=== PATIENT | male | born 1950 | race Caucasian/White ===

== ENCOUNTER 2019-08-17 14:30 | Emergency (ER) | payer MEDICARE ==
[~2019-08-17 14:30] MED LIST: ALPR0.5T PO; AMLO5TAB9 PO; ASPI-999 PO; ATOR80TA76 PO; CLOP75TA28 PO; DONE5TAB8 PO; FLUO60TA PO; IRBE300T18 PO; MELO15TA14 PO; MEMA5TAB PO; METO100T12 PO; METO50TA7 PO
[2019-08-17] MEDS ORDERED: ASPIRIN 81 MG CHEW (CHILDREN'S ASA) PO ONE (15:30)
--- NOTE | 2019-08-17 15:37 | ED Chest Pain ---
General Chief Complaint: Cardiac/General Problems Stated Complaint: DIZZINESS;WEAKNESS Nursing Triage Note: Pt to room #6 via ED w/c by ED staff with c/o headache, neck discomfort, et dizziness. Daughter at side reports pt has been experiencing vague ssymtpoms of "not feeling well." Pt denies CP or SOA. Nursing Sepsis Screen: No Definite Risk Source: patient Exam Limitations: no limitations History of Present Illness Date Seen by Provider: Aug 17, 2019 Time Seen by Provider: 15:08 Initial Comments Patient arrives to the ER with his daughter and spouse. He has some later term dementia but is still verbal and able to make his needs known. He was complaining around 1:00 this afternoon to his daughter that he had a neck ache and headache and left shoulder was hurting. He had similar left shoulder pain without chest pain June 2019, 3 months ago when he had a heart attack. Said he did not feel well and this sounded ominous to his daughter so she brought him to the ER for evaluation. First she gave him some Tylenol and waited and after an hour he still did not feel well. No nausea vomiting fever chills cough shortness of breath wheezing or history of lung disease. He does not smoke but is spouse smokes. He is taking all of his medications, Plavix and as prescribed. He followed by Dr. Lieberman and Dr. Trinh, cardiology. He has sleep apnea, hypertension, hyperlipidemia. They recently changed his statin because he was having some generalized backache see if that would help. He has osteoarthritis and common complaints of pain in his low back and hands bilaterally. He recently had his metoprolol In half from 150 mg. He is not a diabetic. Allergies and Home Medications Allergies Coded Allergies: No Known Drug Allergies (Unverified , 06/06/19) Home Medications Alprazolam 0.5 Mg Tablet, 0.5 MG PO Q6H PRN for ANXIETY, (Reported) Amlodipine Besylate 5 Mg Tablet, 5 MG PO DAILY Prescribed by: LAISHA GRANT on 08/17/19 174 Aspirin 81 Mg Tab.chew, 81 MG PO DAILY Prescribed by: MAXIMO CORRAL on 06/08/19 1002 Atorvastatin Calcium 80 Mg Tablet, 80 MG PO DAILY, (Reported) Clopidogrel Bisulfate 75 Mg Tablet, 75 MG PO DAILY Prescribed by: MAXIMO CORRAL on 06/08/19 1002 Donepezil HCl 5 Mg Tablet, 5 MG PO DAILY, (Reported) Fluoxetine HCl 60 Mg Tablet, 30 MG PO DAILY, (Reported) Irbesartan 300 Mg Tablet, 300 MG PO DAILY, (Reported) Memantine HCl 5 Mg Tablet, 5 MG PO DAILY, (Reported) Metoprolol Succinate 50 Mg Tab.er.24h, 50 MG PO DAILY Prescribed by: MAXIMO CORRAL on 06/08/19 1002 Metoprolol Succinate 25 Mg Tab.er.24h, 25 MG PO DAILY Prescribed by: LAISHA GRANT on 08/17/19 1742 Patient Home Medication List Home Medication List Reviewed: Yes Review of Systems Review of Systems Constitutional: No chills, No diaphoresis EENTM: No Blurred Vision, No Eye Tearing Respiratory: Denies Cough, Denies Shortness of Air Cardiovascular: Denies Chest Pain, Denies Edema, Denies Lightheadedness Gastrointestinal: Denies Constipated, Denies Diarrhea Genitourinary: Denies Discharge, Denies Drainage Musculoskeletal: back pain; No joint pain, No joint swelling; neck pain Skin: No change in color, No dryness Psychiatric/Neurological: Headache Past Axsviqy-Ggvewq-Uuppwd Hx Patient Social History 2nd Hand Smoke Exposure: Yes ( SMOKES) Recent Foreign Travel: No Contact w/Someone Who Travel: No Recent Infectious Disease Expo: No Recent Hopitalizations: No Seasonal Allergies Seasonal Allergies: No Past Medical History Surgeries: No Respiratory: No Cardiac: Yes (SVT) High Cholesterol, Irregular Heartbeat Neurological: Yes Dementia Genitourinary: No Gastrointestinal: No Musculoskeletal: Yes (CHRONIC GENERALIZED PAIN) Endocrine: No (OBESITY) HEENT: No Cancer: No Psychosocial: Yes Anxiety, Depression Integumentary: No Blood Disorders: No Physical Exam Vital Signs Vital Signs - First Documented 08/17/19 08/17/19 14:40 18:38 Temp 37.1 Pulse 50 Resp 18 B/P (MAP) 170/102 (124) Pulse Ox 96 O2 Delivery Room Air Capillary Refill : Less Than 3 Seconds Height, Weight, BMI Height: '" Weight: lbs. oz. kg; 45.97 BMI Method: General Appearance: No Apparent Distress, Obese HEENT: PERRL/EOMI, Pharynx Normal, Moist Mucous Membranes Neck: Full Range of Motion, Normal Inspection Respiratory: Chest Non Tender, Lungs Clear, Normal Breath Sounds, No Accessory Muscle Use Cardiovascular: Regular Rate, Rhythm, No Edema, No JVD, No Murmur, Normal Peripheral Pulses Gastrointestinal: Normal Bowel Sounds, No Organomegaly, Non Tender, Soft Extremity: Normal Capillary Refill, Normal Inspection, No Pedal Edema Neurologic/Psychiatric: Alert, Oriented x3, No Motor/Sensory Deficits Skin: Normal Color, Warm/Dry Progress/Results/Core Measures Results/Orders Lab Results Laboratory Tests Test 08/17/19 14:45 08/17/19 17:30 Range/Units White Blood Count 10.1 4.3-11.0 10^3/uL Red Blood Count 4.76 4.35-5.85 10^6/uL Hemoglobin 15.1 13.3-17.7 G/DL Hematocrit 44 40-54 % Mean Corpuscular Volume 92 80-99 FL Mean Corpuscular Hemoglobin 32 25-34 PG Mean Corpuscular Hemoglobin Concent 35 32-36 G/DL Red Cell Distribution Width 14.1 10.0-14.5 % Platelet Count 353 130-400 10^3/uL Mean Platelet Volume 10.5 H 7.4-10.4 FL Neutrophils (%) (Auto) 52 42-75 % Lymphocytes (%) (Auto) 36 12-44 % Monocytes (%) (Auto) 10 0-12 % Eosinophils (%) (Auto) 2 0-10 % Basophils (%) (Auto) 0 0-10 % Neutrophils # (Auto) 5.3 1.8-7.8 X 10^3 Lymphocytes # (Auto) 3.7 1.0-4.0 X 10^3 Monocytes # (Auto) 1.0 0.0-1.0 X 10^3 Eosinophils # (Auto) 0.2 0.0-0.3 10^3/uL Basophils # (Auto) 0.0 0.0-0.1 10^3/uL Prothrombin Time 12.0 L 12.2-14.7 SEC INR Comment 0.9 0.8-1.4 Activated Partial Thromboplast Time 33 24-35 SEC Sodium Level 135 135-145 MMOL/L Potassium Level 4.6 3.6-5.0 MMOL/L Chloride Level 101 98-107 MMOL/L Carbon Dioxide Level 25 21-32 MMOL/L Anion Gap 9 5-14 MMOL/L Blood Urea Nitrogen 14 7-18 MG/DL Creatinine 1.05 0.60-1.30 MG/DL Estimat Glomerular Filtration Rate > 60 BUN/Creatinine Ratio 13 Glucose Level 122 H 70-105 MG/DL Calcium Level 9.4 8.5-10.1 MG/DL Corrected Calcium 9.4 8.5-10.1 MG/DL Magnesium Level 2.1 1.6-2.4 MG/DL Total Bilirubin 0.4 0.1-1.0 MG/DL Aspartate Amino Transf (AST/SGOT) 16 5-34 U/L Alanine Aminotransferase (ALT/SGPT) 17 0-55 U/L Alkaline Phosphatase 80 40-136 U/L Myoglobin 55.9 10.0-92.0 NG/ML Troponin I < 0.028 < 0.028 <0.028 NG/ML B-Type Natriuretic Peptide 34.1 <100.0 PG/ML Total Protein 7.3 6.4-8.2 GM/DL Albumin 4.0 3.2-4.5 GM/DL My Orders Orders - LAISHA GRANT Cbc With Automated Diff (08/17/19:) Magnesium (08/17/19 15:27) Chest 1 View, Ap/Pa Only (08/17/19 15:27) Comprehensive Metabolic Panel (08/17/19:) Myoglobin Serum (08/17/19:) Protime With Inr (08/17/19 15:27) Partial Thromboplastin Time (08/17/19 15:27) O2 (08/17/19 15:27) Monitor-Rhythm Ecg Trace Only (08/17/19 15:27) Ed Iv/Invasive Line Start (08/17/19 15:27) BNP (08/17/19 15:27) Troponin I (08/17/19 15:27) Aspirin Chewable Tablet (Baby Aspirin Ch (08/17/19 15:30) Ekg Tracing (08/17/19 15:27) Troponin I (08/17/19 17:27) Ekg Tracing (08/17/19 17:27) Medications Given in ED Vital Signs/I&O 08/17/19 08/17/19 14:40 18:38 Temp 37.1 Pulse 50 49 Resp 18 18 B/P (MAP) 170/102 (124) 160/96 (124) Pulse Ox 96 97 O2 Delivery Room Air Room Air Blood Pressure Mean: 124 Progress Progress Note : Time: 15:47 Progress Note Atypical angina? Prodromal viral syndrome? Typical headache? At this time is not endorsing any headache or neck ache so possibly the Tylenol has helped. We'll get a troponin and EKG given some aspirin and get a chest x-ray. Initial ECG Impression Date: Aug 17, 2019 Initial ECG Impression Time: 14:40 Initial ECG Rate: 53 Initial ECG Rhythm: Normal Sinus Initial ECG Intervals: Normal Initial ECG Impression: Normal Initial ECG Comparisson: Changed, Unchanged Comment Normal sinus rhythm without ST elevation or depression. EKG : EKG Time: 17:33 Rate: 46 Rhythm: S.Michael Intervals: Normal ECG Comparisson: Changed, Unchanged ECG Impression: Normal Comment Sinus bradycardia no ST elevation or depression. Diagnostic Imaging Diagonstic Imaging: Xray Plain Films/CT/US/NM/MRI: chest (1v) Comments Favor bibasilar atelectasis. [facility], [place] NAME: EDITH REYNOSO [facility] REC#: [id number] PT STATUS: REG ER : 1950 PHYSICIAN: LAISHA GRANT MD ADMIT DATE: 08/17/19/ER Signed Date of Exam:08/17/19 CHEST 1 VIEW, AP/PA ONLY INDICATION: Headache, neck discomfort, and dizziness. Comparison made with prior examination from 06/06/2019. FINDINGS: There is cardiomegaly. There is some bibasilar subsegmental atelectasis and/or pneumonitis. There is no pneumothorax. Mediastinum is unremarkable. IMPRESSION: Cardiomegaly and some patchy bibasilar subsegmental atelectasis and/or pneumonitis. Dictated by: Dictated on workstation # [id number] Dict: 08/17/19 1604 Trans: 08/17/19 1610 [id number] Interpreted by: DONNA SANDRA MD Electronically signed by: DONNA SANDRA MD 08/17/19 1610 Reviewed: Reviewed by Me Consults : Consulting Physician: NEY TRINH MD FACP FAC CCDS Consults Notes Discussed the case with Dr. Trinh at 1730 and he would like a rule out troponin 4 hours after the start of the pain which was at about 1300. If this is okay then he would be okay letting the patient go home and halving the dose of metoprolol to 25 mg. He would suggest treating the blood pressure with amlodipine 5 mg daily. Follow-up Tomorrow in the clinic. Departure Impression Primary Impression: Hypertension Qualified Codes: I10 - Essential (primary) hypertension Additional Impressions: Beta-ernesto intolerance Sinus bradycardia seen on curing room worker Disposition: HOME, SELF-CARE Condition: Stable Departure-Patient Inst. Decision time for Depature: 18:27 Referrals: NEY TRINH MD FACP FAC CCDS NO,LOCAL PHYSICIAN (PCP) Primary Care Physician Patient Instructions: High Blood Pressure (DC) Add. Discharge Instructions: Stop taking the metoprolol 50 mg daily. Start taking metoprolol 25 mg daily. Start taking amlodipine 5 mg daily. Follow-up with primary care Dr. Trinh, cardiology tomorrow in the clinic by calling for an appointment first thing in the morning. Tylenol, muscle rubs, heat as necessary for neck ache and headache. Please return to the ER if you begin to experience chest pain, shortness of breath or other worrisome symptoms. All discharge instructions reviewed with patient and/or family. Voiced understanding. Scripts Amlodipine Besylate (Amlodipine Besylate) 5 Mg Tablet 5 MG PO DAILY for 30 Days, #30 TAB 0 Refills Prov: LAISHA GRANT 08/17/19 Metoprolol Succinate (Metoprolol Succinate) 25 Mg Tab.er.24h 25 MG PO DAILY for 30 Days, #30 TAB 0 Refills Prov: LAISHA GRANT 08/17/19 LAISHA GRANT Aug 17, 2019 15:37
[2019-08-17 15:42] LABS: BASOPHILS % (AUTO) 0 % (0-10); EOSINOPHILS # (AUTO) 0.2 10^3/uL (0.0-0.3); EOSINOPHILS % (AUTO) 2 % (0-10); HEMATOCRIT 44 % (40-54); HEMOGLOBIN 15.1 G/DL (13.3-17.7); LYMPHOCYTES # (AUTO) 3.7 X 10^3 (1.0-4.0); LYMPHOCYTES % (AUTO) 36 % (12-44); MEAN CORPUSCULAR HEMOGLOBIN 32 PG (25-34); MEAN CORPUSCULAR HGB CONC 35 G/DL (32-36); MEAN CORPUSCULAR VOLUME 92 FL (80-99); MEAN PLATELET VOLUME 10.5 FL (7.4-10.4); MONOCYTES % (AUTO) 10 % (0-12); NEUTROPHILS # (AUTO) 5.3 X 10^3 (1.8-7.8); NEUTROPHILS % (AUTO) 52 % (42-75); PLATELET COUNT 353 10^3/uL (130-400); RED CELL DISTRIBUTION WIDTH 14.1 % (10.0-14.5); WHITE BLOOD COUNT 10.1 10^3/uL (4.3-11.0)
[2019-08-17 16:00] LABS: ALANINE AMINOTRANSFERASE 17 U/L (0-55); ALKALINE PHOSPHATASE 80 U/L (40-136); BILIRUBIN,TOTAL 0.4 MG/DL (0.1-1.0); BUN/CREATININE RATIO 13; CALCIUM 9.4 MG/DL (8.5-10.1); CARBON DIOXIDE 25 MMOL/L (21-32); CHLORIDE 101 MMOL/L (98-107); CREATININE SERUM 1.05 MG/DL (0.60-1.30); GFR ESTIMATED > 60; GLUCOSE 122 MG/DL (70-105); INR 0.9 (0.8-1.4); MAGNESIUM 2.1 MG/DL (1.6-2.4); POTASSIUM 4.6 MMOL/L (3.6-5.0); SODIUM 135 MMOL/L (135-145); TOTAL PROTEIN 7.3 GM/DL (6.4-8.2)
--- NOTE | 2019-08-17 16:06 | Diagnostic Imaging Report ---
INDICATION: Headache, neck discomfort, and dizziness. Comparison made with prior examination from 06/06/2019. FINDINGS: There is cardiomegaly. There is some bibasilar subsegmental atelectasis and/or pneumonitis. There is no pneumothorax. Mediastinum is unremarkable. IMPRESSION: Cardiomegaly and some patchy bibasilar subsegmental atelectasis and/or pneumonitis. Dictated by: Dictated on workstation # [id number]
[2019-08-17] MEDS ORDERED: MTP25TSR PO (17:42)
[2019-08-17] MEDS ORDERED: AMLO5TAB9 PO (17:42)
[2019-08-17 18:38] VITALS: BP 160/96
--- OUTSIDE RECORDS SUMMARY | 2019-08-27 06:26 | XMS REPORT | Continuity of Care Document ---
Author Organization Unknown Address Unknown Phone Unavailable Allergies Active Description Code Type Severity Reaction Onset Reported/Identified Relationship to Patient Clinical Status Yes No Known Drug Allergies [id number] Drug Allergy Unknown N/A 06/06/2019 Medications There is no data. Problems Date Dx Coded Attending Type Code Diagnosis Diagnosed By 06/08/2019 STERLING HIGGINBOTHAM FACC, NEY FACP CCDS Ot E66.01 MORBID (SEVERE) OBESITY DUE TO EXCESS CA 06/08/2019 STERLING HIGGINBOTHAM FACC, NEY FACP CCDS Ot E78.00 PURE HYPERCHOLESTEROLEMIA, UNSPECIFIED 06/08/2019 STERLING HIGGINBOTHAM FACC, ALI FACP CCDS Ot F03.90 UNSPECIFIED DEMENTIA WITHOUT BEHAVIORAL 06/08/2019 STERLING HIGGINBOTHAM FACC, NEY FACP CCDS Ot F32.9 MAJOR DEPRESSIVE DISORDER, SINGLE EPISOD 06/08/2019 STERLING HIGGINBOTHAM FACC, NEY FACP CCDS Ot G89.29 OTHER CHRONIC PAIN 06/08/2019 STERLING HIGGINBOTHAM FACC, NEY FACP CCDS Ot I10 ESSENTIAL (PRIMARY) HYPERTENSION 06/08/2019 STERLING HIGGINBOTHAM FACC, ALI FACP CCDS Ot I21.4 NON-ST ELEVATION (NSTEMI) MYOCARDIAL INF 06/08/2019 STERLING HIGGINBOTHAM FACC, NEY FACP CCDS Ot I25.10 ATHSCL HEART DISEASE OF [place] CORONARY 06/08/2019 STERLING HIGGINBOTHAM FACC, NEY FACP CCDS Ot I47.1 SUPRAVENTRICULAR TACHYCARDIA 06/08/2019 NEY KATZ MD, FACC FACP CCDS Ot R52 PAIN, UNSPECIFIED 06/08/2019 STERLING HIGGINBOTHAM FACC, NEY FACP CCDS Ot R73.01 IMPAIRED FASTING GLUCOSE 06/08/2019 STERLING HIGGINBOTHAM FACC ALI FACP CCDS Ot Z68.42 BODY MASS INDEX (BMI) 45.0-49.9, ADULT 06/08/2019 NEY KATZ MD, FACC FACP CCDS Ot E66.01 MORBID (SEVERE) OBESITY DUE TO EXCESS CA 06/08/2019 STERLING MD FACC, ALI FACP CCDS Ot E78.00 PURE HYPERCHOLESTEROLEMIA, UNSPECIFIED 06/08/2019 STERLING SHAIKHC, ALI FACP CCDS Ot F03.90 UNSPECIFIED DEMENTIA WITHOUT BEHAVIORAL 06/08/2019 STERLING HIGGINBOTHAM FACC, ALI FACP CCDS Ot F32.9 MAJOR DEPRESSIVE DISORDER, SINGLE EPISOD 06/08/2019 STERLING SHAIKHC, ALI FACP CCDS Ot G89.29 OTHER CHRONIC PAIN 06/08/2019 STERLING SHAIKHC, ALI FACP CCDS Ot I10 ESSENTIAL (PRIMARY) HYPERTENSION 06/08/2019 STERLING SHAIKHC, ALI FACP CCDS Ot I21.4 NON-ST ELEVATION (NSTEMI) MYOCARDIAL INF 06/08/2019 STERLING HIGGINBOTHAM FACC, ALI FACP CCDS Ot I25.10 ATHSCL HEART DISEASE OF [place] CORONARY 06/08/2019 STERLING HIGGINBOTHAM FACC, ALI FACP CCDS Ot I47.1 SUPRAVENTRICULAR TACHYCARDIA 06/08/2019 STERLING HIGGINBOTHAM FACC, ALI FACP CCDS Ot R52 PAIN, UNSPECIFIED 06/08/2019 STERLING HIGGINBOTHAM FACC, ALI FACP CCDS Ot R73.01 IMPAIRED FASTING GLUCOSE 06/08/2019 STERLING HIGGINBOTHAM FACC, ALI FACP CCDS Ot Z68.42 BODY MASS INDEX (BMI) 45.0-49.9, ADULT 06/08/2019 STERLING HIGGINBOTHAM FACC, ALI FACP CCDS Ot E66.01 MORBID (SEVERE) OBESITY DUE TO EXCESS CA 06/08/2019 STERLING SHAIKH, ALI FACP CCDS Ot E78.00 PURE HYPERCHOLESTEROLEMIA, UNSPECIFIED 06/08/2019 STERLING SHAIKH, ALI FACP CCDS Ot F03.90 UNSPECIFIED DEMENTIA WITHOUT BEHAVIORAL 06/08/2019 STERLING SHAIKH, ALI FACP CCDS Ot F32.9 MAJOR DEPRESSIVE DISORDER, SINGLE EPISOD 06/08/2019 STERLING HIGGINBOTHAM FACC, ALI FACP CCDS Ot G89.29 OTHER CHRONIC PAIN 06/08/2019 STERLING HIGGINBOTHAM FACC, ALI FACP CCDS Ot I10 ESSENTIAL (PRIMARY) HYPERTENSION 06/08/2019 STERLING HIGGINBOTHAM FACC, ALI FACP CCDS Ot I21.4 NON-ST ELEVATION (NSTEMI) MYOCARDIAL INF 06/08/2019 STERLING HIGGINBOTHAM FACC, ALI FACP CCDS Ot I25.10 ATHSCL HEART DISEASE OF [place] CORONARY 06/08/2019 STERLING HIGGINBOTHAM FACC, NEY FACP CCDS Ot I47.1 SUPRAVENTRICULAR TACHYCARDIA 06/08/2019 STERLING HIGGINBOTHAM FACC, NEY FACP CCDS Ot R52 PAIN, UNSPECIFIED 06/08/2019 STERLING HIGGINBOTHAM FACC, ALI FACP CCDS Ot R73.01 IMPAIRED FASTING GLUCOSE 06/08/2019 STERLING HIGGINBOTHAM FACC, ALI FACP CCDS Ot Z68.42 BODY MASS INDEX (BMI) 45.0-49.9, ADULT 06/08/2019 STERLING HIGGINBOTHAM FACC, ALI FACP CCDS Ot E66.01 MORBID (SEVERE) OBESITY DUE TO EXCESS CA 06/08/2019 STERLING HIGGINBOTHAM FACC, NEY FACP CCDS Ot E78.00 PURE HYPERCHOLESTEROLEMIA, UNSPECIFIED 06/08/2019 STERLING HIGGINBOTHAM FACC, NEY FACP CCDS Ot F03.90 UNSPECIFIED DEMENTIA WITHOUT BEHAVIORAL 06/08/2019 STERLING HGIGINBOTHAM FACC, ALI FACP CCDS Ot F32.9 MAJOR DEPRESSIVE DISORDER, SINGLE EPISOD 06/08/2019 STERLING HIGGINBOTHAM FACC, NEY FACP CCDS Ot G89.29 OTHER CHRONIC PAIN 06/08/2019 STERLING HIGGINBOTHAM FACC, NEY FACP CCDS Ot I10 ESSENTIAL (PRIMARY) HYPERTENSION 06/08/2019 STERLING HIGGINBOTHAM FACC, NEY FACP CCDS Ot I21.4 NON-ST ELEVATION (NSTEMI) MYOCARDIAL INF 06/08/2019 STERLING HIGGINBOTHAM FACC, NEY FACP CCDS Ot I25.10 ATHSCL HEART DISEASE OF [place] CORONARY 06/08/2019 NEY KATZ MD, FACC FACP CCDS Ot I25.110 ATHSCL HEART DISEASE OF [place] COR ART W 06/08/2019 STERLING HIGGINBOTHAM FACC, NEY FACP CCDS Ot 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 06/08/2019 STERLING HIGGINBOTHAM FACC, NEY FACP CCDS Ot I47.1 SUPRAVENTRICULAR TACHYCARDIA 06/08/2019 STERLING HIGGINBOTHAM FACC, NEY FACP CCDS Ot I95.81 POSTPROCEDURAL HYPOTENSION 06/08/2019 NEY KATZ MD, FACC FACP CCDS Ot 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 06/08/2019 NEY KATZ MD, FACC FACP CCDS Ot K66.1 HEMOPERITONEUM 06/08/2019 STERLING HIGGINBOTHAM FACC, NEY FACP CCDS Ot R52 PAIN, UNSPECIFIED 06/08/2019 STERLING SHAIKH, ALI FACP CCDS Ot R73.01 IMPAIRED FASTING GLUCOSE 06/08/2019 STERLING SHAIKH, ALI FACP CCDS Ot Z68.42 BODY MASS INDEX (BMI) 45.0-49.9, ADULT 06/10/2019 STERLING HIGGINBOTHAM FACC, ALI FACP CCDS Ot E66.01 MORBID (SEVERE) OBESITY DUE TO EXCESS CA 06/10/2019 STERLING SHAIKH, ALI FACP CCDS Ot E78.00 PURE HYPERCHOLESTEROLEMIA, UNSPECIFIED 06/10/2019 STERLING SHAIKH, ALI FACP CCDS Ot F03.90 UNSPECIFIED DEMENTIA WITHOUT BEHAVIORAL 06/10/2019 STERLING SHAIKH, ALI FACP CCDS Ot F32.9 MAJOR DEPRESSIVE DISORDER, SINGLE EPISOD 06/10/2019 STERLING HIGGINBOTHAM FACC, ALI FACP CCDS Ot G89.29 OTHER CHRONIC PAIN 06/10/2019 STERLING SHAIKH, NEY FACP CCDS Ot I10 ESSENTIAL (PRIMARY) HYPERTENSION 06/10/2019 STERLING SHAIKH, ALI FACP CCDS Ot I21.4 NON-ST ELEVATION (NSTEMI) MYOCARDIAL INF 06/10/2019 STERLING SHAIKH, ALI FACP CCDS Ot I25.10 ATHSCL HEART DISEASE OF [place] CORONARY 06/10/2019 STERLING SHAIKH, ALI FACP CCDS Ot I47.1 SUPRAVENTRICULAR TACHYCARDIA 06/10/2019 STERLING HIGGINBOTHAM FACC, NYE FACP CCDS Ot R52 PAIN, UNSPECIFIED 06/10/2019 STERLING SHAIKH, ALI FACP CCDS Ot R73.01 IMPAIRED FASTING GLUCOSE 06/10/2019 STERLING SHAIKH, ALI FACP CCDS Ot Z68.42 BODY MASS INDEX (BMI) 45.0-49.9, ADULT Procedures Code Description Performed By Per nina On [id number] DI LATION OF 1 COR ART WITH DRUG-ELUT INT 06/06/2019 [id number] ME ASURE OF CARDIAC SAMPL PRESSURE, L H 06/06/2019 [id number] FL UOROSCOPY OF MULT COR ART USING L OSM 06/06/2019 [id number] FL UOROSCOPY OF LEFT HEART USING LOW OSMO 06/06/2019 Results Test Result Range Complete blood count (CBC) with automate d white blood cell (WBC) differential - 06/06/19 07:25 Blood leukocytes automated count (number/volume) 11.3 10*3/uL 4.3-11.0 Blood erythrocytes automated count (number/volume) 5.10 10*6/uL 4.35-5.85 Venous blood hemoglobin measurement (mass/volume) 16.2 g/dL 13.3-17.7 Blood hematocrit (volume fraction) 47 % 40-54 Automated erythrocyte mean corpuscular volume 93 [ foz_us] 80-99 Automated erythrocyte mean corpuscular h emoglobin (mass per erythrocyte) 32 pg 25-34 Automated erythrocyte mean corpuscular h emoglobin concentration measurement (mass/volume) 34 g/dL 32-36 Automated erythrocyte distribution width ratio 14. 1 % 10.0- 14.5 Automated blood platelet count (count/volume) 361 10*3/uL 130-400 Automated blood platelet mean volume measurement 10.4 [foz_us] 7.4-10.4 Automated blood neutrophils/100 leukocytes 48 % 42-75 Automated blood lymphocytes/100 leukocytes 39 % 12-44 Blood monocytes/100 leukocytes 10 % 0-12 Automated blood eosinophils/100 leukocytes 2 % 0-10 Automated blood basophils/100 leukocytes 0 % 0-10 Blood neutrophils automated count (number/volume) 5.4 10*3 1.8-7.8 Blood lymphocytes automated count (number/volume) 4.5 10*3 1.0-4.0 Blood monocytes automated count (number/volume) 1. 2 10*3 0.0-1.0 Automated eosinophil count 0.2 10*3/uL 0 .0-0.3 Automated blood basophil count (count/volume) 0.0 10*3/uL 0.0-0.1 PT panel in platelet poor plasma by coag ulation assay - 06/06/19 07:25 Prothrombin time (PT) in platelet poor plasma by coagu lation assay 12.5 s 12.2-14.7 INR in platelet poor plasma or blood by coagulation as say 0.9 0.8-1.4 Activated partial thromboplastin time (a PTT) in platelet poor plasma bycoagulation assay - 06/06/19 07:25 Activated partial thromboplastin time (a PTT) in platelet poor plasma bycoagulation assay 34 s 24-35 Comprehensive metabolic panel - 06/06/19 07:25 Serum or plasma sodium measurement (moles/volume) 138 mmol/L 135-145 Serum or plasma potassium measurement (moles/volume) 4.2 mmol/L 3.6-5.0 Serum or plasma chloride measurement (moles/volume) 100 mmol/L 98-107 Carbon dioxide 24 mmol/L 21-32 Serum or plasma anion gap determination (moles/volume) 14 mmol/L 5-14 Serum or plasma urea nitrogen measurement (mass/volume ) 14 mg/dL 7-18 Serum or plasma creatinine measurement (mass/volume) 1.24 mg/dL 0.60-1.30 Serum or plasma urea nitrogen/creatinine mass ratio 11 NRG Serum or plasma creatinine measurement w ith calculation of estimated glomerular filtration rate 58 NRG Serum or plasma glucose measurement (mass/volume) 110 mg/dL 70-105 Serum or plasma calcium measurement (mass/volume) 9.1 mg/dL 8.5-10.1 Serum or plasma total bilirubin measurement (mass/volu me) 0.5 mg/dL 0.1-1.0 Serum or plasma alkaline phosphatase jaret surement (enzymatic activity/volume) 93 U/L 40-136 Serum or plasma aspartate aminotransfera se measurement (enzymatic activity/volume) 20 U/L 5-34 Serum or plasma alanine aminotransferase measurement (enzymatic activity/volume) 23 U/L 0-55 Serum or plasma protein measurement (mass/volume) 7.8 g/dL 6.4-8.2 Serum or plasma albumin measurement (mass/volume) 4.3 g/dL 3.2-4.5 CALCIUM CORRECTED 8.9 mg/dL 8.5-10.1 Magnesium - 06/06/19 07:25 Magnesium 1.9 mg/dL 1.6-2.4 Serum or plasma creatine kinase measurem ent (enzymatic activity/volume) - 06/06/19 07:25 Serum or plasma creatine kinase measurem ent (enzymatic activity/volume) 126 U/L 30-200 Serum or plasma creatine kinase MB measu rement (enzymatic activity/volume) - 06/06/19 07:25 Serum or plasma creatine kinase MB measu rement (enzymatic activity/volume) 2.3 ng/mL <6.6 Myoglobin, serum - 06/06/19 07:25 Myoglobin, serum 61.4 ng/mL 10.0-92.0 Serum or plasma amylase measurement (enz ymatic activity/volume) - 06/06/19 07:25 Serum or plasma amylase measurement (enzymatic activit y/volume) 45 U/L 25-125 Lipase - 06/06/19 07:25 Lipase 20 U/L 8-78 Serum or plasma troponin i.cardiac measu rement (mass/volume) - 06/06/19 07:25 Serum or plasma troponin i.cardiac measurement (mass/v olume) 0.283 ng/mL <0.028 Serum or plasma lithium measurement (mol es/volume) - 06/06/19 07:25 BNP PT 34.9 pg/mL <100.0 Complete blood count (CBC) with automate d white blood cell (WBC) differential - 06/06/19 10:45 Blood leukocytes automated count (number/volume) 17.7 10*3/uL 4.3-11.0 Blood erythrocytes automated count (number/volume) 3.95 10*6/uL 4.35-5.85 Venous blood hemoglobin measurement (mass/volume) 12.5 g/dL 13.3-17.7 Blood hematocrit (volume fraction) 38 % 40-54 Automated erythrocyte mean corpuscular volume 95 [ foz_us] 80-99 Automated erythrocyte mean corpuscular h emoglobin (mass per erythrocyte) 32 pg 25-34 Automated erythrocyte mean corpuscular h emoglobin concentration measurement (mass/volume) 33 g/dL 32-36 Automated erythrocyte distribution width ratio 13. 9 % 10.0- 14.5 Automated blood platelet count (count/volume) 353 10*3/uL 130-400 Automated blood platelet mean volume measurement 10.3 [foz_us] 7.4-10.4 Automated blood neutrophils/100 leukocytes 63 % 42-75 Automated blood lymphocytes/100 leukocytes 27 % 12-44 Blood monocytes/100 leukocytes 9 % 0-12 Automated blood eosinophils/100 leukocytes 1 % 0-10 Automated blood basophils/100 leukocytes 0 % 0-10 Blood neutrophils automated count (number/volume) 11.2 10*3 1.8-7.8 Blood lymphocytes automated count (number/volume) 4.7 10*3 1.0-4.0 Blood monocytes automated count (number/volume) 1. 6 10*3 0.0-1.0 Automated eosinophil count 0.1 10*3/uL 0 .0-0.3 Automated blood basophil count (count/volume) 0.0 10*3/uL 0.0-0.1 Blood type T Indirect antibody screen pa leatha - 06/06/19 10:45 WRISTBAND NUMBER [id number] NRG ABO+Rh group AP NRG Blood group antibody screen NEGATIVE NR G Manual absolute plasma cell count - 07/25 10:45 Blood monocytes/100 leukocytes 8 % NRG Manual blood segmented neutrophils/100 leukocytes 69 % NRG Manual blood lymphocytes/100 leukocytes 17 % NRG Manual eosinophils/100 leukocytes in nose 1 % NRG Blood lymphocytes variant/100 leukocytes 5 % NRG Blood erythrocyte morphology finding identification NORMAL NRG Complete blood count (CBC) with automate d white blood cell (WBC) differential - 06/06/19 11:15 Blood leukocytes automated count (number/volume) 13.2 10*3/uL 4.3-11.0 Blood erythrocytes automated count (number/volume) 4.05 10*6/uL 4.35-5.85 Venous blood hemoglobin measurement (mass/volume) 12.9 g/dL 13.3-17.7 Blood hematocrit (volume fraction) 39 % 40-54 Automated erythrocyte mean corpuscular volume 95 [ foz_us] 80-99 Automated erythrocyte mean corpuscular h emoglobin (mass per erythrocyte) 32 pg 25-34 Automated erythrocyte mean corpuscular h emoglobin concentration measurement (mass/volume) 34 g/dL 32-36 Automated erythrocyte distribution width ratio 13. 8 % 10.0- 14.5 Automated blood platelet count (count/volume) 290 10*3/uL 130-400 Automated blood platelet mean volume measurement 10.3 [foz_us] 7.4-10.4 Automated blood neutrophils/100 leukocytes 68 % 42-75 Automated blood lymphocytes/100 leukocytes 23 % 12-44 Blood monocytes/100 leukocytes 9 % 0-12 Automated blood eosinophils/100 leukocytes 1 % 0-10 Automated blood basophils/100 leukocytes 0 % 0-10 Blood neutrophils automated count (number/volume) 8.9 10*3 1.8-7.8 Blood lymphocytes automated count (number/volume) 3.0 10*3 1.0-4.0 Blood monocytes automated count (number/volume) 1. 1 10*3 0.0-1.0 Automated eosinophil count 0.1 10*3/uL 0 .0-0.3 Automated blood basophil count (count/volume) 0.0 10*3/uL 0.0-0.1 Comprehensive metabolic panel - 06/06/19 11:15 Serum or plasma sodium measurement (moles/volume) 137 mmol/L 135-145 Serum or plasma potassium measurement (moles/volume) 4.4 mmol/L 3.6-5.0 Serum or plasma chloride measurement (moles/volume) 106 mmol/L 98-107 Carbon dioxide 21 mmol/L 21-32 Serum or plasma anion gap determination (moles/volume) 10 mmol/L 5-14 Serum or plasma urea nitrogen measurement (mass/volume ) 13 mg/dL 7-18 Serum or plasma creatinine measurement (mass/volume) 1.13 mg/dL 0.60-1.30 Serum or plasma urea nitrogen/creatinine mass ratio 12 NRG Serum or plasma creatinine measurement w ith calculation of estimated glomerular filtration rate > NRG Serum or plasma glucose measurement (mass/volume) 142 mg/dL 70-105 Serum or plasma calcium measurement (mass/volume) 7.5 mg/dL 8.5-10.1 Serum or plasma total bilirubin measurement (mass/volu me) 0.4 mg/dL 0.1-1.0 Serum or plasma alkaline phosphatase jaret surement (enzymatic activity/volume) 68 U/L 40-136 Serum or plasma aspartate aminotransfera se measurement (enzymatic activity/volume) 25 U/L 5-34 Serum or plasma alanine aminotransferase measurement (enzymatic activity/volume) 19 U/L 0-55 Serum or plasma protein measurement (mass/volume) 5.6 g/dL 6.4-8.2 Serum or plasma albumin measurement (mass/volume) 3.3 g/dL 3.2-4.5 CALCIUM CORRECTED 8.1 mg/dL 8.5-10.1 Automated blood complete blood count (he mogram) panel - 06/07/19 03:22 Blood leukocytes automated count (number/volume) 8.8 10*3/uL 4.3-11.0 Blood erythrocytes automated count (number/volume) 3.99 10*6/uL 4.35-5.85 Venous blood hemoglobin measurement (mass/volume) 12.5 g/dL 13.3-17.7 Blood hematocrit (volume fraction) 38 % 40-54 Automated erythrocyte mean corpuscular volume 95 [ foz_us] 80-99 Automated erythrocyte mean corpuscular h emoglobin (mass per erythrocyte) 31 pg 25-34 Automated erythrocyte mean corpuscular h emoglobin concentration measurement (mass/volume) 33 g/dL 32-36 Automated erythrocyte distribution width ratio 14. 2 % 10.0- 14.5 Automated blood platelet count (count/volume) 286 10*3/uL 130-400 Automated blood platelet mean volume measurement 10.3 [foz_us] 7.4-10.4 Comprehensive metabolic panel - 06/07/19 03:22 Serum or plasma sodium measurement (moles/volume) 136 mmol/L 135-145 Serum or plasma potassium measurement (moles/volume) 4.2 mmol/L 3.6-5.0 Serum or plasma chloride measurement (moles/volume) 104 mmol/L 98-107 Carbon dioxide 23 mmol/L 21-32 Serum or plasma anion gap determination (moles/volume) 9 mmol/L 5-14 Serum or plasma urea nitrogen measurement (mass/volume ) 10 mg/dL 7-18 Serum or plasma creatinine measurement (mass/volume) 1.05 mg/dL 0.60-1.30 Serum or plasma urea nitrogen/creatinine mass ratio 10 NRG Serum or plasma creatinine measurement w ith calculation of estimated glomerular filtration rate > NRG Serum or plasma glucose measurement (mass/volume) 116 mg/dL 70-105 Serum or plasma calcium measurement (mass/volume) 8.1 mg/dL 8.5-10.1 Serum or plasma total bilirubin measurement (mass/volu me) 0.7 mg/dL 0.1-1.0 Serum or plasma alkaline phosphatase jaret surement (enzymatic activity/volume) 80 U/L 40-136 Serum or plasma aspartate aminotransfera se measurement (enzymatic activity/volume) 48 U/L 5-34 Serum or plasma alanine aminotransferase measurement (enzymatic activity/volume) 25 U/L 0-55 Serum or plasma protein measurement (mass/volume) 6.3 g/dL 6.4-8.2 Serum or plasma albumin measurement (mass/volume) 3.6 g/dL 3.2-4.5 CALCIUM CORRECTED 8.4 mg/dL 8.5-10.1 Magnesium - 06/07/19 03:22 Magnesium 1.7 mg/dL 1.6-2.4 Lipid 1996 panel - 06/07/19 03:22 Serum or plasma triglyceride measurement (mass/volume) 130 mg/dL <150 Serum or plasma cholesterol measurement (mass/volume) 156 mg/dL < 200 Serum or plasma cholesterol in HDL measurement (mass/v olume) 30 mg/dL 40-60 Cholesterol in LDL [mass/volume] in serum or plasma by direct assay 116 mg/dL 1-129 Serum or plasma cholesterol in VLDL measurement (mass/ volume) 26 mg/dL 5-40 THYROID STIMULATING HORMONE - 06/07/19 0 3:22 THYROID STIMULATING HORMONE 0.72 u[iU]/mL 0.35-4.94 Complete blood count (CBC) with automate d white blood cell (WBC) differential - 08/17/19 14:45 Blood leukocytes automated count (number/volume) 10.1 10*3/uL 4.3-11.0 Blood erythrocytes automated count (number/volume) 4.76 10*6/uL 4.35-5.85 Venous blood hemoglobin measurement (mass/volume) 15.1 g/dL 13.3-17.7 Blood hematocrit (volume fraction) 44 % 40-54 Automated erythrocyte mean corpuscular volume 92 [ foz_us] 80-99 Automated erythrocyte mean corpuscular h emoglobin (mass per erythrocyte) 32 pg 25-34 Automated erythrocyte mean corpuscular h emoglobin concentration measurement (mass/volume) 35 g/dL 32-36 Automated erythrocyte distribution width ratio 14. 1 % 10.0- 14.5 Automated blood platelet count (count/volume) 353 10*3/uL 130-400 Automated blood platelet mean volume measurement 10.5 [foz_us] 7.4-10.4 Automated blood neutrophils/100 leukocytes 52 % 42-75 Automated blood lymphocytes/100 leukocytes 36 % 12-44 Blood monocytes/100 leukocytes 10 % 0-12 Automated blood eosinophils/100 leukocytes 2 % 0-10 Automated blood basophils/100 leukocytes 0 % 0-10 Blood neutrophils automated count (number/volume) 5.3 10*3 1.8-7.8 Blood lymphocytes automated count (number/volume) 3.7 10*3 1.0-4.0 Blood monocytes automated count (number/volume) 1. 0 10*3 0.0-1.0 Automated eosinophil count 0.2 10*3/uL 0 .0-0.3 Automated blood basophil count (count/volume) 0.0 10*3/uL 0.0-0.1 Comprehensive metabolic panel - 08/17/19 14:45 Serum or plasma sodium measurement (moles/volume) 135 mmol/L 135-145 Serum or plasma potassium measurement (moles/volume) 4.6 mmol/L 3.6-5.0 Serum or plasma chloride measurement (moles/volume) 101 mmol/L 98-107 Carbon dioxide 25 mmol/L 21-32 Serum or plasma anion gap determination (moles/volume) 9 mmol/L 5-14 Serum or plasma urea nitrogen measurement (mass/volume ) 14 mg/dL 7-18 Serum or plasma creatinine measurement (mass/volume) 1.05 mg/dL 0.60-1.30 Serum or plasma urea nitrogen/creatinine mass ratio 13 NRG Serum or plasma creatinine measurement w ith calculation of estimated glomerular filtration rate > NRG Serum or plasma glucose measurement (mass/volume) 122 mg/dL 70-105 Serum or plasma calcium measurement (mass/volume) 9.4 mg/dL 8.5-10.1 Serum or plasma total bilirubin measurement (mass/volu me) 0.4 mg/dL 0.1-1.0 Serum or plasma alkaline phosphatase jaret surement (enzymatic activity/volume) 80 U/L 40-136 Serum or plasma aspartate aminotransfera se measurement (enzymatic activity/volume) 16 U/L 5-34 Serum or plasma alanine aminotransferase measurement (enzymatic activity/volume) 17 U/L 0-55 Serum or plasma protein measurement (mass/volume) 7.3 g/dL 6.4-8.2 Serum or plasma albumin measurement (mass/volume) 4.0 g/dL 3.2-4.5 CALCIUM CORRECTED 9.4 mg/dL 8.5-10.1 Magnesium - 08/17/19 14:45 Magnesium 2.1 mg/dL 1.6-2.4 PT panel in platelet poor plasma by coag ulation assay - 08/17/19 14:45 Prothrombin time (PT) in platelet poor plasma by coagu lation assay 12.0 s 12.2-14.7 INR in platelet poor plasma or blood by coagulation as say 0.9 0.8-1.4 Activated partial thromboplastin time (a PTT) in platelet poor plasma bycoagulation assay - 08/17/19 14:45 Activated partial thromboplastin time (a PTT) in platelet poor plasma bycoagulation assay 33 s 24-35 Myoglobin, serum - 08/17/19 14:45 Myoglobin, serum 55.9 ng/mL 10.0-92.0 Serum or plasma troponin i.cardiac measu rement (mass/volume) - 08/17/19 14:45 Serum or plasma troponin i.cardiac measurement (mass/v olume) < ng/mL <0.028 Serum or plasma lithium measurement (mol es/volume) - 08/17/19 14:45 BNP PT 34.1 pg/mL <100.0 Serum or plasma troponin i.cardiac measu rement (mass/volume) - 08/17/19 17:30 Serum or plasma troponin i.cardiac measurement (mass/v olume) < ng/mL <0.028 Encounters ACCT No. Visit Date/Time Discharge Status Pt. Type Provider Facility Loc./Unit Complaint [id number] 08/17/2019 14:31:00 020 18:38:00 DIS Emergency JUANITA HIGGINBOTHAM, LAISHA Galvin [facility] ER DIZZINESS;WEAKNESS [id number] 06/06/2019 08:20:00 019 10:30:00 DIS Inpatient STERLING HIGGINBOTHAM FACC, NEY PETERS CCD S [facility] CSD BLOCKAGE
== END 2019-08-17 18:38 | disposition home or self-care (01) ==
LOC: EDUNIT# 14:30 → ER 14:31
DX: I10 Essential (primary) hypertension (principal); R00.1 Bradycardia, unspecified; E78.00 Pure hypercholesterolemia, unspecified; F41.9 Anxiety disorder, unspecified; F32.9 Major depressive disorder, single episode, unspecified; E66.9 Obesity, unspecified; Z79.02 Long term (current) use of antithrombotics/antiplatelets; Z79.82 Long term (current) use of aspirin
CPT/HCPCS: 36415; 71045; 80053; 83735; 83874; 83880; 84484; 85025; 85610; 85730; 93005; 93041

== ENCOUNTER 2019-11-16 02:14 | Emergency (ER) | payer MEDICARE ==
[~2019-11-16] VITALS: Ht 173 cm; Wt 100.0 kg
[~2019-11-16 02:14] MED LIST changes: +IRBE300T17 PO; -IRBE300T18 PO; +MTP25TSR PO
--- OUTSIDE RECORDS SUMMARY | 2019-11-16 02:20 | XMS REPORT | Continuity of Care Document ---
Author Organization Unknown Address Unknown Phone Unavailable Allergies Active Description Code Type Severity Reaction Onset Reported/Identified Relationship to Patient Clinical Status Yes No Known Drug Allergies [id number] Drug Allergy Unknown N/A 06/06/2019 Medications There [...] CCDS Ot I25.10 ATHSCL HEART DISEASE OF [place] CORONARY 06/08/2019 STERLING HIGGINBOTHAM FACC, NEY FACP [...] CCDS Ot I25.10 ATHSCL HEART DISEASE OF [place] CORONARY 06/08/2019 STERLING HIGGINBOTHAM FACC, ALI FACP [...] CCDS Ot I25.10 ATHSCL HEART DISEASE OF [place] CORONARY 06/08/2019 STERLING HIGGINBOTHAM FACC, NEY FACP [...] CCDS Ot I25.10 ATHSCL HEART DISEASE OF [place] CORONARY 06/08/2019 NEY KATZ MD, FACC FACP CCDS Ot I25.110 ATHSCL HEART DISEASE OF [place] COR ART W 06/08/2019 STERLING HIGGINBOTHAM FACC, [...] Ot K66.1 HEMOPERITONEUM 06/08/2019 STERLING HIGGINBOTHAM FACC, ALI FACP CCDS Ot R52 PAIN, UNSPECIFIED 06/08/[address] [facility], ALI FACP CCDS Ot R73.01 IMPAIRED FASTING GLUCOSE 06/08/2019 STERLING SHAIKH, ALI FACP CCDS Ot Z68.42 BODY MASS INDEX (BMI) 45.0-49.9, ADULT 06/10/[address] [facility], ALI FACP CCDS Ot E66.01 MORBID (SEVERE) OBESITY DUE TO EXCESS CA 06/10/2019 STERLING SHAIKH, ALI FACP CCDS Ot E78.00 PURE HYPERCHOLESTEROLEMIA, UNSPECIFIED 06/10/[address] [facility], ALI FACP CCDS Ot F03.90 UNSPECIFIED DEMENTIA WITHOUT BEHAVIORAL 06/10/[address] [facility], ALI FACP CCDS Ot F32.9 MAJOR DEPRESSIVE DISORDER, SINGLE EPISOD 06/10/2019 STERLING SHAIKH, ALI FACP CCDS Ot G89.29 OTHER CHRONIC PAIN 06/10/[address] [facility], ALI FACP CCDS Ot I10 ESSENTIAL (PRIMARY) HYPERTENSION 06/10/[address] [facility], ALI FACP CCDS Ot I21.4 NON-ST ELEVATION (NSTEMI) MYOCARDIAL INF 06/10/[address] [facility], ALI FACP CCDS Ot I25.10 ATHSCL HEART DISEASE OF [place] CORONARY 06/10/[address] [facility], ALI FACP CCDS Ot I47.1 SUPRAVENTRICULAR TACHYCARDIA 06/10/[address] [facility], ALI FACP CCDS Ot R52 PAIN, UNSPECIFIED 06/10/[address] [facility], ALI FACP CCDS Ot R73.01 IMPAIRED FASTING GLUCOSE 06/10/[address] [facility], ALI FACP CCDS Ot Z68.42 BODY MASS INDEX (BMI) 45.0-49.9, ADULT 08/17/2019 LAISHA GRANT MD Ot E66. 9 OBESITY, UNSPECIFIED 08/17/2019 LAISHA GRANT MD Ot E78. 00 PURE HYPERCHOLESTEROLEMIA, UNSPECIFIED 08/17/2019 LAISHA GRANT MD Ot F32. 9 MAJOR DEPRESSIVE DISORDER, SINGLE EPISOD 08/17/2019 LIASHA GRANT MD Ot F41. 9 ANXIETY DISORDER, UNSPECIFIED 08/17/2019 LAISHA GRANT MD Ot I10 ESSENTIAL (PRIMARY) HYPERTENSION 08/17/2019 LAISHA GRANT MD Ot R00. 1 BRADYCARDIA, UNSPECIFIED 08/17/2019 LAISHA GRANT MD Ot R42 DIZZINESS AND GIDDINESS 08/17/2019 LAISHA GRANT MD Ot Z79. 02 PRISON (CURRENT) USE OF ANTITHROMBOTI 08/17/2019 LAISHA GRANT MD Ot Z79. 82 PRISON (CURRENT) USE OF ASPIRIN 09/01/2019 LAISHA GRANT MD Ot E66. 9 OBESITY, UNSPECIFIED 09/01/2019 LAISHA GRANT MD Ot E78. 00 PURE HYPERCHOLESTEROLEMIA, UNSPECIFIED 09/01/2019 LAISHA GRANT MD Ot F32. 9 MAJOR DEPRESSIVE DISORDER, SINGLE EPISOD 09/01/2019 LAISHA GRANT MD Ot F41. 9 ANXIETY DISORDER, UNSPECIFIED 09/01/2019 LAISHA GRANT MD Ot I10 ESSENTIAL (PRIMARY) HYPERTENSION 09/01/2019 LAISHA GRANT MD Ot R00. 1 BRADYCARDIA, UNSPECIFIED 09/01/2019 LAISHA GRANT MD Ot R42 DIZZINESS AND GIDDINESS 09/01/2019 LAISHA GRANT MD Ot Z79. 02 PRISON (CURRENT) USE OF ANTITHROMBOTI 09/01/2019 LAISHA GRANT MD Ot Z79. 82 PRISON (CURRENT) USE OF ASPIRIN Procedures Code Description Performed By Per formed On 026079C DI LATION OF 1 COR ART WITH DRUG-ELUT INT 06/06/2019 [id number] ME ASURE OF CARDIAC SAMPL PRESSURE, L H 06/06/2019 [id number] FL UOROSCOPY OF MULT COR ART USING L OSM 06/06/2019 [id number] FL UOROSCOPY OF LEFT HEART USING LOW [...] pa leatha - 06/06/19 10:45 WRISTBAND NUMBER [id number] NRG ABO+Rh group AP NRG Blood group [...] mg/dL 8.5-10.1 Automated blood complete blood count ([facility]) panel - 06/07/19 03:22 Blood leukocytes automated [...] Status Pt. Type Provider Facility Loc./Unit Complaint [id number] 08/17/2019 14:31:00 020 18:38:00 DIS Emergency JUANITA HIGGINBOTHAM, LAISHA Galvin [facility] ER DIZZINESS;WEAKNESS [id number] 06/06/2019 08:20:00 019 10:30:00 DIS Inpatient STERLING HIGGINBOTHAM FACC, NEY PETERS CCD S [facility] CSD BLOCKAGE
[2019-11-16] MEDS ORDERED: ACETAMINOPHEN 500 MG TAB (TYLENOL) PO ONE (02:30)
[2019-11-16] MEDS ORDERED: ASPIRIN 81 MG CHEW (CHILDREN'S ASA) PO ONE (02:30)
--- NOTE | 2019-11-16 02:32 | ED General ---
General Chief Complaint: Altered Mental Status Stated Complaint: AMS,BACK PAIN Source of Information: Patient Exam Limitations: No Limitations History of Present Illness Date Seen by Provider: November 16, 2019 Time Seen by Provider: 02:12 Initial Comments Patient presents ER by private conveyance with his daughter/caregiver and spouse and chief complaint that for the past 3 or 4 days he has been experiencing delirium worse in the evening with confusion concerning people chasing him and hallucinations visually. He is also complaining some pain in his low back. His daughter is concerned maybe he was having another heart attack because last time he had a heart attack he did not have chest pain just left shoulder and arm pain. He denies any new pains his chronic low back pain. No nausea vomiting sweats chills shortness of breath. She typically gives him Tylenol once a day for low back pain as necessary and he takes all of his other medications including Plavix and aspirin as necessary. He followed by Dr. Trinh and has an appointment with Dr. Ngo, primary care this morning to discuss his d elirium. She withheld his memantine and donepezil 2 days ago thinking it might be contributing to his delirium. She sees to that he takes all his other medications. Appetite has been normal. No vomiting diarrhea or constipation. Allergies and Home Medications Allergies Coded Allergies: No Known Drug Allergies (Unverified , 06/06/19) Home Medications Alprazolam 0.5 Mg Tablet, 0.5 MG PO Q6H PRN for ANXIETY, (Reported) Amlodipine Besylate 5 Mg Tablet, 5 MG PO DAILY Prescribed by: LAISHA GRANT on 08/17/191741 Aspirin 81 Mg Tab.chew, 81 MG PO DAILY Prescribed by: MAXIMO CORRAL on 06/08/19 1002 Atorvastatin Calcium 80 Mg Tablet, 80 MG PO DAILY, (Reported) Clopidogrel Bisulfate 75 Mg Tablet, 75 MG PO DAILY Prescribed by: MAXIMO CORRAL on 06/08/19 1002 Donepezil HCl 5 Mg Tablet, 5 MG PO DAILY, (Reported) Fluoxetine HCl 60 Mg Tablet, 30 MG PO DAILY, (Reported) Irbesartan 300 Mg Tablet, 300 MG PO DAILY, (Reported) Memantine HCl 5 Mg Tablet, 5 MG PO DAILY, (Reported) Metoprolol Succinate 25 Mg Tab.er.24h, 25 MG PO DAILY Prescribed by: LAISHA GRANT on 2/11/20 1742 Patient Home Medication List Home Medication List Reviewed: Yes Review of Systems Review of Systems Constitutional: No chills, No diaphoresis EENTM: No ear discharge, No ear pain Respiratory: No cough, No dyspnea on exertion Cardiovascular: No chest pain; Hx of Intervention; No palpitations Gastrointestinal: No abdominal pain, No constipation, No diarrhea, No nausea Genitourinary: No discharge, No dysuria Musculoskeletal: back pain (chronic, lumbar); No joint pain Skin: No pruritus, No rash Psychiatric/Neurological: Denies Headache, Denies Numbness All Other Systems Reviewed Negative Unless Noted: Yes Past Zlwrzcm-Maixol-Xeayau Hx Patient Social History Alcohol Use: Denies Use Recreational Drug Use: No Smoking Status: Never a Smoker 2nd Hand Smoke Exposure: Yes Recent Foreign Travel: No Contact w/Someone Who Travel: No Recent Hopitalizations: No Seasonal Allergies Seasonal Allergies: No Past Medical History Surgeries: No Respiratory: No Cardiac: Yes High Cholesterol, Irregular Heartbeat Neurological: Yes Dementia Genitourinary: No Gastrointestinal: No Musculoskeletal: Yes Endocrine: No HEENT: No Cancer: No Psychosocial: Yes Anxiety, Depression Integumentary: No Blood Disorders: No Physical Exam Vital Signs Vital Signs - First Documented Capillary Refill : Height, Weight, BMI Height: '" Weight: lbs. oz. kg; 45.97 BMI Method: General Appearance: No Apparent Distress, Obese Eyes: Bilateral Eye Normal Inspection, Bilateral Eye PERRL, Bilateral Eye EOMI HEENT: PERRL/EOMI, TMs Normal, Normal ENT Inspection, Pharynx Normal, Moist Mucous Membranes Neck: Full Range of Motion, Normal Inspection Respiratory: Chest Non Tender, Lungs Clear, Normal Breath Sounds, No Accessory Muscle Use, No Respiratory Distress Cardiovascular: Regular Rate, Rhythm, No Edema, Normal Peripheral Pulses Gastrointestinal: Normal Bowel Sounds, Non Tender, Soft Extremity: Normal Capillary Refill, Normal Inspection Neurologic/Psychiatric: Alert, Oriented x3, No Motor/Sensory Deficits, Normal Mood/Affect, trapper bird II-XII Norm as Tested, Other (GCS 14, somnolent; NIH of 0 points) Skin: Normal Color, Warm/Dry Progress/Results/Core Measures Suspected Sepsis SIRS Temperature: Pulse: Respiratory Rate: Laboratory Tests 11/16/19 02:18: White Blood Count 11.5H Blood Pressure / Mean: Laboratory Tests 11/16/19 02:18: Creatinine 1.21, INR Comment 0.9, Platelet Count 363, Total Bilirubin 0.3 Results/Orders Lab Results Laboratory Tests Test 11/16/19 02:18 11/16/19 02:40 11/16/19 02:55 Range/Units White Blood Count 11.5 H 4.3-11.0 10^3/uL Red Blood Count 4.78 4.35-5.85 10^6/uL Hemoglobin 14.9 13.3-17.7 G/DL Hematocrit 45 40-54 % Mean Corpuscular Volume 93 80-99 FL Mean Corpuscular Hemoglobin 31 25-34 PG Mean Corpuscular Hemoglobin Concent 33 32-36 G/DL Red Cell Distribution Width 14.3 10.0-14.5 % Platelet Count 363 130-400 10^3/uL Mean Platelet Volume 10.2 7.4-10.4 FL Neutrophils (%) (Auto) 50 42-75 % Lymphocytes (%) (Auto) 37 12-44 % Monocytes (%) (Auto) 11 0-12 % Eosinophils (%) (Auto) 1 0-10 % Basophils (%) (Auto) 0 0-10 % Neutrophils # (Auto) 5.8 1.8-7.8 X 10^3 Lymphocytes # (Auto) 4.3 H 1.0-4.0 X 10^3 Monocytes # (Auto) 1.3 H 0.0-1.0 X 10^3 Eosinophils # (Auto) 0.1 0.0-0.3 10^3/uL Basophils # (Auto) 0.0 0.0-0.1 10^3/uL Prothrombin Time 12.1 L 12.2-14.7 SEC INR Comment 0.9 0.8-1.4 Activated Partial Thromboplast Time 32 24-35 SEC Sodium Level 138 135-145 MMOL/L Potassium Level 4.7 3.6-5.0 MMOL/L Chloride Level 102 98-107 MMOL/L Carbon Dioxide Level 25 21-32 MMOL/L Anion Gap 11 5-14 MMOL/L Blood Urea Nitrogen 19 H 7-18 MG/DL Creatinine 1.21 0.60-1.30 MG/DL Estimat Glomerular Filtration Rate 59 BUN/Creatinine Ratio 16 Glucose Level 110 H 70-105 MG/DL Calcium Level 9.2 8.5-10.1 MG/DL Corrected Calcium 9.1 8.5-10.1 MG/DL Magnesium Level 2.3 1.6-2.4 MG/DL Total Bilirubin 0.3 0.1-1.0 MG/DL Aspartate Amino Transf (AST/SGOT) 17 5-34 U/L Alanine Aminotransferase (ALT/SGPT) 16 0-55 U/L Alkaline Phosphatase 73 40-136 U/L Myoglobin 43.3 10.0-92.0 NG/ML Troponin I < 0.028 <0.028 NG/ML B-Type Natriuretic Peptide 21.1 <100.0 PG/ML Total Protein 7.7 6.4-8.2 GM/DL Albumin 4.1 3.2-4.5 GM/DL Lipase 54 8-78 U/L Urine Color YELLOW Urine Clarity SL CLOUDY Urine pH 5.5 5-9 Urine Specific [place] >=1.030 1.016-1.022 Urine Protein NEGATIVE NEGATIVE Urine Glucose (UA) NEGATIVE NEGATIVE Urine Ketones NEGATIVE NEGATIVE Urine Nitrite NEGATIVE NEGATIVE Urine Bilirubin NEGATIVE NEGATIVE Urine Urobilinogen 0.2 < = 1.0 MG/DL Urine Leukocyte Esterase NEGATIVE NEGATIVE Urine RBC (Auto) NEGATIVE NEGATIVE Urine RBC NONE /HPF Urine WBC NONE /HPF Urine Squamous Epithelial Cells RARE /HPF Urine Crystals NONE /LPF Urine Bacteria NEGATIVE /HPF Urine Casts PRESENT /LPF Urine Hyaline Casts RARE /LPF Urine Mucus NEGATIVE /LPF Urine Culture Indicated NO Blood Gas Puncture Site LEFT RADIAL Blood Gas Patient Temperature 36.8 Arterial Blood pH 7.37 7.37-7.43 Arterial Blood Partial Pressure CO2 45 35-45 MMHG Arterial Blood Partial Pressure O2 102 H 79-93 MMHG Arterial Blood HCO3 26 23-27 MMOL/L Arterial Blood Total CO2 27.1 21.0-31.0 MMOL/L Arterial Blood Oxygen Saturation 98 94-100 % Arterial Blood Base Excess 1.0 -2.5-2.5 MMOL/L Marcelo Test POSITIVE Blood Gas Ventilator Setting NO Blood Gas Inspired Oxygen RA My Orders Orders - LAISHA GRANT Cbc With Automated Diff (11/16/19 02:24) Magnesium (11/16/19 02:24) Chest 1 View, Ap/Pa Only (11/16/19 02:24) Ekg Tracing (11/16/19 02:24) Comprehensive Metabolic Panel (11/16/19 02:24) Myoglobin Serum (11/16/19 02:24) Protime With Inr (11/16/19 02:24) Partial Thromboplastin Time (11/16/19 02:24) O2 (11/16/19 02:24) Monitor-Rhythm Ecg Trace Only (11/16/19 02:24) Lipid Panel (11/17/19 06:00) Ed Iv/Invasive Line Start (11/16/19 02:24) Lipase (11/16/19 02:24) BNP (11/16/19 02:24) Aspirin Chewable Tablet (Baby Aspirin Ch (11/16/19 02:30) Acetaminophen Tablet (Tylenol Tablet) (11/16/19 02:30) Ua Culture If Indicated (11/16/19 02:24) Troponin I (11/16/19 02:18) Arterial Blood Gas (11/16/19 02:58) Ct Head Wo (11/16/19 03:14) Medications Given in ED Current Medications Medications Dose Ordered Sig/Beckie Route Start Time Stop Time Status Last Admin Dose Admin Acetaminophen 1,000 mg ONCE ONCE PO 11/16/19 02:30 11/16/19 02:31 DC 11/16/19 02:30 1,000 MG Aspirin 324 mg ONCE ONCE PO 11/16/19 02:30 11/16/19 02:31 DC 11/16/19 02:30 324 MG Vital Signs/I&O 11/16/19 11/16/19 02:15 02:15 Temp 36.8 Pulse 60 Resp 22 B/P (MAP) 153/86 (108) Pulse Ox 97 97 O2 Delivery Room Air Room Air Capillary Refill : Progress Note : Time: 02:30 Progress Note Sundowning, new onset delirium over the past 3 or 4 days. She correctly withheld the anti-Alzheimer meds. We'll check for signs of infection, UTI and pneumonia etc. We will give him aspirin and obtain an EKG thinking about atypical anginal pain. He appears at baseline from the previous times her seen him in the ER. His only complaint is low back pain. We'll give him some Tylenol. We'll consider a CT of the abdomen pelvis. ECG Initial ECG Impression Date: November 16, 2019 Initial ECG Impression Time: 02:16 Initial ECG Rate: 56 Initial ECG Rhythm: Normal Sinus Initial ECG Intervals: Normal Initial ECG Impression: Normal Initial ECG Comparisson: Unchanged Comment Normal sinus rhythm without clinically relevant ST elevation or depression. Diagnostic Imaging Diagonstic Imaging: Xray Plain Films/CT/US/NM/MRI: chest (1v) Comments Mild bibasilar atelectasis. Reviewed: Reviewed by Me Diagonstic Imaging: CT Plain Films/CT/US/NM/MRI: head Comments No acute hemorrhage, hydrocephalus, tumor or mass effect. Reviewed: Reviewed [place] Hawk Study, Reviewed by Me Departure Impression Primary Impression: SunDown syndrome Additional Impression: Dementia Qualified Codes: F03.91 - Unspecified dementia with behavioral disturbance Disposition: 01 HOME, SELF-CARE Condition: Stable Departure-Patient Inst. Decision time for Depature: 04:19 Referrals: KARISSA NGO MD (PCP/Family) Primary Care Physician Patient Instructions: Delirium (Confusion) (DC), Dementia (Including Alzheimer Disease) Add. Discharge Instructions: Keep your follow-up appointment today with your primary care doctor to discuss other potential sources of delirium/confusion. All discharge instructions reviewed with patient and/or family. Voiced understanding. ALISHA GRANT November 16, 2019 02:32
[2019-11-16 02:35] LABS: BASOPHILS % (AUTO) 0 % (0-10); EOSINOPHILS # (AUTO) 0.1 10^3/uL (0.0-0.3); EOSINOPHILS % (AUTO) 1 % (0-10); HEMATOCRIT 45 % (40-54); HEMOGLOBIN 14.9 G/DL (13.3-17.7); LYMPHOCYTES # (AUTO) 4.3 X 10^3 (1.0-4.0); LYMPHOCYTES % (AUTO) 37 % (12-44); MEAN CORPUSCULAR HEMOGLOBIN 31 PG (25-34); MEAN CORPUSCULAR HGB CONC 33 G/DL (32-36); MEAN CORPUSCULAR VOLUME 93 FL (80-99); MEAN PLATELET VOLUME 10.2 FL (7.4-10.4); MONOCYTES # (AUTO) 1.3 X 10^3 (0.0-1.0); MONOCYTES % (AUTO) 11 % (0-12); NEUTROPHILS # (AUTO) 5.8 X 10^3 (1.8-7.8); NEUTROPHILS % (AUTO) 50 % (42-75); PLATELET COUNT 363 10^3/uL (130-400); RED CELL DISTRIBUTION WIDTH 14.3 % (10.0-14.5); WHITE BLOOD COUNT 11.5 10^3/uL (4.3-11.0)
[2019-11-16 02:40] LABS: ALBUMIN 4.1 GM/DL (3.2-4.5); CHLORIDE 102 MMOL/L (98-107); POTASSIUM 4.7 MMOL/L (3.6-5.0); SODIUM 138 MMOL/L (135-145)
[2019-11-16 02:41] LABS: CALCIUM 9.2 MG/DL (8.5-10.1)
[2019-11-16 02:42] LABS: GLUCOSE 110 MG/DL (70-105); INR 0.9 (0.8-1.4); PROTHROMBIN TIME PATIENT 12.1 SEC (12.2-14.7)
[2019-11-16 02:43] LABS: TOTAL PROTEIN 7.7 GM/DL (6.4-8.2)
[2019-11-16 02:44] LABS: BILIRUBIN,TOTAL 0.3 MG/DL (0.1-1.0); CARBON DIOXIDE 25 MMOL/L (21-32)
[2019-11-16 02:46] LABS: ALKALINE PHOSPHATASE 73 U/L (40-136); CREATININE SERUM 1.21 MG/DL (0.60-1.30); GFR ESTIMATED 59
[2019-11-16 02:47] LABS: BUN/CREATININE RATIO 16
[2019-11-16 02:49] LABS: ALANINE AMINOTRANSFERASE 16 U/L (0-55); MAGNESIUM 2.3 MG/DL (1.6-2.4)
[2019-11-16 02:50] LABS: LIPASE 54 U/L (8-78)
[2019-11-16 02:55] LABS: BILIRUBIN,URINE NEGATIVE (NEGATIVE); CLARITY,URINE SL CLOUDY; COLOR,URINE YELLOW; GLUCOSE, URINE (UA) NEGATIVE (NEGATIVE); KETONES,URINE NEGATIVE (NEGATIVE); LEUKOCYTE ESTERASE ,URINE NEGATIVE (NEGATIVE); NITRITE,URINE NEGATIVE (NEGATIVE); PH,URINE 5.5 (5-9); PROTEIN,URINE NEGATIVE (NEGATIVE)
[2019-11-16 03:02] LABS: ABG OXYGEN SATURATION 98 % (94-100); ABG PCO2 45 MMHG (35-45); ABG PH 7.37 (7.37-7.43); ABG PO2 102 MMHG (79-93); ABG TCO2 27.1 MMOL/L (21.0-31.0)
[2019-11-16 03:03] LABS: ALLENS TEST POSITIVE; INSPIRED O2 RA; PATIENT TEMP 36.8; VENTILATOR NO
[2019-11-16 03:11] LABS: BACTERIA,URINE NEGATIVE /HPF; SQUAMOUS EPITHELIAL CELL,UR RARE /HPF
[2019-11-16 03:12] LABS: HYALINE CASTS, URINE RARE /LPF
[2019-11-16 04:25] VITALS: BP 151/95
--- NOTE | 2019-11-16 05:22 | Diagnostic Imaging Report ---
INDICATION: Altered mental status. Back pain. COMPARISON: 08/17/2019 FINDINGS: Single frontal view of the chest demonstrates normal heart size and pulmonary vascularity. The lungs are well aerated and clear. No large pleural effusion or pneumothorax is seen. The visualized osseous structures show no acute abnormalities. IMPRESSION: 1. No acute cardiopulmonary process. Dictated by: Dictated on workstation # [id number]
--- NOTE | 2019-11-16 06:11 | Diagnostic Imaging Report ---
INDICATION: Altered mental status. TECHNIQUE: Routine non contrast-enhanced axial images were obtained from the skull base to the vertex. Auto Exposure Controls were utilized during the CT exam to meet ALARA standards for radiation dose reduction COMPARISON: None. FINDINGS: The ventricles and cortical sulci are diffusely prominent, compatible with age-related volume loss. There are confluent areas of abnormal, low attenuation in the periventricular white matter. This is consistent with small vessel ischemic changes; age-indeterminate. There is no prior study available for comparison. There is no midline shift or mass-effect. No acute intra-axial hemorrhage is seen. There are no abnormal areas of increased or decreased density to suggest acute hemorrhage or edema. No extra-axial masses or collections are present. The bony calvarium is intact. The visualized paranasal sinuses show moderate mucosal thickening of the left maxillary sinus. The mastoid air cells are clear. IMPRESSION: 1. No acute intracranial abnormality. No CT evidence of mass, acute infarct or intracranial hemorrhage. 2. Small vessel ischemic changes in the periventricular and subcortical white matter; likely chronic. Dictated by: Dictated on workstation # [id number]
== END 2019-11-16 04:25 | disposition home or self-care (01) ==
LOC: EDUNIT# 02:14 → ER 02:16
DX: F05 Delirium due to known physiological condition (principal); F03.90 Unspecified dementia, unspecified severity, without behavioral disturbance, psychotic disturbance, mood disturbance, and anxiety; E78.00 Pure hypercholesterolemia, unspecified; F41.9 Anxiety disorder, unspecified; F32.9 Major depressive disorder, single episode, unspecified; Z79.02 Long term (current) use of antithrombotics/antiplatelets; Z79.82 Long term (current) use of aspirin; Z77.22 Contact with and (suspected) exposure to environmental tobacco smoke (acute) (chronic)
CPT/HCPCS: 36415; 70450; 71045; 80053; 81000; 82805; 83690; 83735; 83874; 83880; 84484; 85025; 85610; 85730; 93005; 93041

== ENCOUNTER 2019-12-03 12:22 | Emergency (ER) | payer MEDICARE ==
[~2019-12-03] VITALS: Ht 167.7 cm; Wt 125.0 kg
[2019-12-03 12:45] LABS: BASOPHILS % (AUTO) 0 % (0-10); EOSINOPHILS # (AUTO) 0.1 10^3/uL (0.0-0.3); EOSINOPHILS % (AUTO) 1 % (0-10); HEMATOCRIT 45 % (40-54); HEMOGLOBIN 15.2 G/DL (13.3-17.7); LYMPHOCYTES # (AUTO) 3.1 X 10^3 (1.0-4.0); LYMPHOCYTES % (AUTO) 35 % (12-44); MEAN CORPUSCULAR HEMOGLOBIN 31 PG (25-34); MEAN CORPUSCULAR HGB CONC 34 G/DL (32-36); MEAN CORPUSCULAR VOLUME 93 FL (80-99); MEAN PLATELET VOLUME 10.3 FL (7.4-10.4); MONOCYTES # (AUTO) 1.1 X 10^3 (0.0-1.0); MONOCYTES % (AUTO) 12 % (0-12); NEUTROPHILS # (AUTO) 4.6 X 10^3 (1.8-7.8); NEUTROPHILS % (AUTO) 52 % (42-75); PLATELET COUNT 306 10^3/uL (130-400); RED CELL DISTRIBUTION WIDTH 13.9 % (10.0-14.5); WHITE BLOOD COUNT 8.9 10^3/uL (4.3-11.0)
[2019-12-03] MEDS ORDERED: ASPIRIN 81 MG CHEW (CHILDREN'S ASA) PO ONE (12:45)
[2019-12-03 12:54] LABS: ALBUMIN 4.2 GM/DL (3.2-4.5)
[2019-12-03 12:55] LABS: CHLORIDE 102 MMOL/L (98-107); POTASSIUM 4.4 MMOL/L (3.6-5.0); SODIUM 136 MMOL/L (135-145)
[2019-12-03 12:56] LABS: CALCIUM 9.2 MG/DL (8.5-10.1)
[2019-12-03 12:57] LABS: GLUCOSE 138 MG/DL (70-105); TOTAL PROTEIN 7.4 GM/DL (6.4-8.2)
[2019-12-03 12:58] LABS: CARBON DIOXIDE 25 MMOL/L (21-32)
[2019-12-03 12:59] LABS: BILIRUBIN,TOTAL 0.3 MG/DL (0.1-1.0)
[2019-12-03 13:00] LABS: INR 0.9 (0.8-1.4); PROTHROMBIN TIME PATIENT 12.2 SEC (12.2-14.7)
[2019-12-03 13:01] LABS: ALKALINE PHOSPHATASE 58 U/L (40-136); CREATININE SERUM 1.11 MG/DL (0.60-1.30); GFR ESTIMATED > 60
[2019-12-03 13:02] LABS: BUN/CREATININE RATIO 13
[2019-12-03 13:03] LABS: MAGNESIUM 2.2 MG/DL (1.6-2.4)
[2019-12-03 13:04] LABS: ALANINE AMINOTRANSFERASE 18 U/L (0-55)
--- NOTE | 2019-12-03 13:17 | Diagnostic Imaging Report ---
INDICATION: Chest discomfort and nausea. COMPARISON: Comparison is made to study of 11/16/2019. FINDINGS: Heart size is at the upper limits of normal. There may be mild left basilar atelectasis. There is no pneumothorax or consolidation. No significant pleural fluid is seen. IMPRESSION: Probable mild left basilar atelectasis and/or scarring with otherwise unremarkable chest. Dictated by: Dictated on workstation # [id number]
--- OUTSIDE RECORDS SUMMARY | 2019-12-03 13:17 | XMS REPORT | Continuity of Care Document ---
Author Organization Unknown Address Unknown Phone Unavailable Allergies Active Description Code Type Severity Reaction Onset Reported/Identified Relationship to Patient Clinical Status Yes No Known Drug Allergies [id number] Drug Allergy Unknown N/A 06/06/2019 Medications There [...] MAJOR DEPRESSIVE DISORDER, SINGLE EPISOD 06/08/2019 STERLING HIGGINBOTHMA FACC, NEY FACP CCDS Ot G89.29 OTHER CHRONIC PAIN 06/08/2019 STERLING HIGGINBOTHAM FACC, NEY FACP CCDS Ot I10 ESSENTIAL (PRIMARY) HYPERTENSION 06/08/2019 STERLING HIGGINBOTHAM FACC, ALI FACP CCDS Ot I21.4 NON-ST ELEVATION (NSTEMI) MYOCARDIAL INF 06/08/2019 STERLING HIGGINBOTHAM FACC, NEY FACP CCDS Ot I25.10 ATHSCL HEART DISEASE OF [place] CORONARY 06/08/2019 STERLING HIGGINBOTHAM FACC, NEY FACP [...] CCDS Ot I25.10 ATHSCL HEART DISEASE OF [place] CORONARY 06/08/2019 STERLING HIGGINBOTHAM FACC, ALI FACP [...] CCDS Ot I25.10 ATHSCL HEART DISEASE OF [place] CORONARY 06/08/2019 STERLING HIGGINBOTHAM FACC, NEY FACP [...] CCDS Ot I25.10 ATHSCL HEART DISEASE OF [place] CORONARY 06/08/2019 NEY KATZ MD, FACC FACP CCDS Ot I25.110 ATHSCL HEART DISEASE OF [place] COR ART W 06/08/2019 STERLING HIGGINBOTHAM FACC, [...] FACP CCDS Ot K66.1 HEMOPERITONEUM 06/08/2019 STERLING HIGGINBTOHAM FACC, ALI FACP CCDS Ot R52 PAIN, UNSPECIFIED 06/08/2019 STERLING HIGGINBOTHAM [facility], ALI FACP CCDS Ot R73.01 IMPAIRED FASTING GLUCOSE 06/08/2019 STERLING SHAIKH, ALI FACP CCDS Ot Z68.42 BODY MASS INDEX (BMI) 45.0-49.9, ADULT 06/10/2019 STERLING HIGGINBOTHAM [facility], ALI FACP CCDS Ot E66.01 MORBID (SEVERE) OBESITY DUE TO EXCESS CA 06/10/2019 STERLING SHAIKH, ALI FACP CCDS Ot E78.00 PURE HYPERCHOLESTEROLEMIA, UNSPECIFIED 06/10/2019 STERLING HIGGINBOTHAM [facility], ALI FACP CCDS Ot F03.90 UNSPECIFIED DEMENTIA WITHOUT BEHAVIORAL 06/10/2019 STERLING HIGGINBOTHAM [facility], ALI FACP CCDS Ot F32.9 MAJOR DEPRESSIVE DISORDER, SINGLE EPISOD 06/10/2019 STERLING SHAIKH, ALI FACP CCDS Ot G89.29 OTHER CHRONIC PAIN 06/10/2019 STERLING HIGGINBOTHAM [facility], ALI FACP CCDS Ot I10 ESSENTIAL (PRIMARY) HYPERTENSION 06/10/2019 STERLING HIGGINBOTHAM [facility], ALI FACP CCDS Ot I21.4 NON-ST ELEVATION (NSTEMI) MYOCARDIAL INF 06/10/2019 STERLING HIGGINBOTHAM [facility], ALI FACP CCDS Ot I25.10 ATHSCL HEART DISEASE OF [place] CORONARY 06/10/2019 STERLING HIGGINBOTHAM [facility], ALI FACP CCDS Ot I47.1 SUPRAVENTRICULAR TACHYCARDIA 06/10/2019 STERLING HIGGINBOTHAM [facility], ALI FACP CCDS Ot R52 PAIN, UNSPECIFIED 06/10/2019 STERLING HIGGINBOTHAM [facility], ALI FACP CCDS Ot R73.01 IMPAIRED FASTING GLUCOSE 06/10/2019 STERLING HIGGINBOTHAM [facility], ALI FACP CCDS Ot Z68.42 BODY MASS INDEX (BMI) 45.0-49.9, ADULT 08/17/2019 LAISHA GRANT MD Ot E66. 9 OBESITY, UNSPECIFIED 08/17/2019 LAISHA GRANT MD Ot E78. 00 PURE HYPERCHOLESTEROLEMIA, UNSPECIFIED 08/17/2019 LAISHA GRANT MD Ot F32. 9 MAJOR DEPRESSIVE DISORDER, SINGLE EPISOD 08/17/2019 LAISHA GRANT MD Ot F41. 9 ANXIETY DISORDER, UNSPECIFIED 08/17/2019 LAISHA GRANT MD Ot I10 ESSENTIAL (PRIMARY) HYPERTENSION 08/17/2019 LAISHA GRANT MD Ot R00. 1 BRADYCARDIA, UNSPECIFIED 08/17/2019 LAISHA GRANT MD Ot R42 DIZZINESS AND GIDDINESS 08/17/2019 LAISHA GRANT MD Ot Z79. 02 [facility] (CURRENT) USE OF ANTITHROMBOTI 08/17/2019 LAISHA GRANT MD Ot Z79. 82 [facility] (CURRENT) USE OF ASPIRIN 09/01/2019 LAISHA GRANT [...] 09/01/2019 LAISHA GRANT MD Ot Z79. 02 [facility] (CURRENT) USE OF ANTITHROMBOTI 09/01/2019 LAISHA GRANT MD Ot Z79. 82 [facility] (CURRENT) USE OF ASPIRIN 11/18/2019 LAISHA GRANT MD Ot E78. 00 PURE HYPERCHOLESTEROLEMIA, UNSPECIFIED 11/18/2019 LAISHA GRANT MD Ot F03. 90 UNSPECIFIED DEMENTIA WITHOUT BEHAVIORAL 11/18/2019 LAISHA GRANT MD Ot F05 DELIRIUM DUE TO KNOWN PHYSIOLOGICAL COND 11/18/2019 LAISHA GRANT MD Ot F32. 9 MAJOR DEPRESSIVE DISORDER, SINGLE EPISOD 11/18/2019 LAISHA GRANT MD Ot F41. 9 ANXIETY DISORDER, UNSPECIFIED 11/18/2019 LAISHA GRANT MD Ot R41. 0 DISORIENTATION, UNSPECIFIED 11/18/2019 LAISHA GRANT MD Ot Z77. 22 CNTCT W AND EXPSR TO ENVIRON TOBACCO SMO 11/18/2019 LAISHA GRANT MD Ot Z79. 02 [employer] (CURRENT) USE OF ANTITHROMBOTI 11/18/2019 LAISHA GRANT MD Ot Z79. 82 [employer] (CURRENT) USE OF ASPIRIN 11/18/2019 LAISHA GRANT MD Ot E78. 00 PURE HYPERCHOLESTEROLEMIA, UNSPECIFIED 11/18/2019 LAISHA GRANT MD Ot F03. 90 UNSPECIFIED DEMENTIA WITHOUT BEHAVIORAL 11/18/2019 LAISHA GRANT MD Ot F05 DELIRIUM DUE TO KNOWN PHYSIOLOGICAL COND 11/18/2019 LAISHA GRANT MD Ot F32. 9 MAJOR DEPRESSIVE DISORDER, SINGLE EPISOD 11/18/2019 LAISHA GRANT MD Ot F41. 9 ANXIETY DISORDER, UNSPECIFIED 11/18/2019 LAISHA GRANT MD Ot R41. 0 DISORIENTATION, UNSPECIFIED 11/18/2019 LAISHA GRANT MD Ot Z77. 22 CNTCT W AND EXPSR TO ENVIRON TOBACCO SMO 11/18/2019 LAISHA GRANT MD Ot Z79. 02 [employer] (CURRENT) USE OF ANTITHROMBOTI 11/18/2019 LAISHA GRANT MD Ot Z79. 82 [facility] (CURRENT) USE OF ASPIRIN 11/22/2019 LAISHA GRANT MD Ot E78. 00 PURE HYPERCHOLESTEROLEMIA, UNSPECIFIED 11/22/2019 LAISHA GRANT MD J Ot F03. 90 UNSPECIFIED DEMENTIA WITHOUT BEHAVIORAL 11/22/2019 LAISHA GRANT MD Ot F05 DELIRIUM DUE TO KNOWN PHYSIOLOGICAL COND 11/22/2019 LAISHA GRANT MD Ot F32. 9 MAJOR DEPRESSIVE DISORDER, SINGLE EPISOD 11/22/2019 LAISHA GRANT MD Ot F41. 9 ANXIETY DISORDER, UNSPECIFIED 11/22/2019 LAISHA GRANT MD Ot R41. 0 DISORIENTATION, UNSPECIFIED 11/22/2019 LAISHA GRANT MD Ot Z77. 22 CNTCT W AND EXPSR TO ENVIRON TOBACCO SMO 11/22/2019 LAISHA GRANT MD Ot Z79. 02 [employer] (CURRENT) USE OF ANTITHROMBOTI 11/22/2019 LAISHA GRANT MD Ot Z79. 82 [employer] (CURRENT) USE OF ASPIRIN 11/23/2019 LAISHA GRANT MD Ot E78. 00 PURE HYPERCHOLESTEROLEMIA, UNSPECIFIED 11/23/2019 LAISHA GRANT MD Ot F03. 90 UNSPECIFIED DEMENTIA WITHOUT BEHAVIORAL 11/23/2019 LAISHA GRANT MD, Ot F05 DELIRIUM DUE TO KNOWN PHYSIOLOGICAL COND 11/23/2019 LAISHA GRANT MD, Ot F32. 9 MAJOR DEPRESSIVE DISORDER, SINGLE EPISOD 11/23/2019 LAISHA GRANT MD, Ot F41. 9 ANXIETY DISORDER, UNSPECIFIED 11/23/2019 LAISHA GRANT MD, Ot R41. 0 DISORIENTATION, UNSPECIFIED 11/23/2019 LAISHA GRANT MD, Ot Z77. 22 CNTCT W AND EXPSR TO ENVIRON TOBACCO SMO 11/23/2019 LAISHA GRANT MD, Ot Z79. 02 [employer] (CURRENT) USE OF ANTITHROMBOTI 11/23/2019 LAISHA GRANT MD, Ot Z79. 82 [facility] (CURRENT) USE OF ASPIRIN Procedures Code Description Performed By Per formed On 952311H DI LATION OF 1 COR ART WITH DRUG-ELUT INT 06/06/2019 [id number] ME ASURE OF CARDIAC SAMPL PRESSURE, L H 06/06/2019 [id number] FL UOROSCOPY OF MULT COR ART USING L OSM 06/06/2019 [id number] FL UOROSCOPY OF LEFT HEART USING LOW [...] pa leatha - 06/06/19 10:45 WRISTBAND NUMBER [id number] NRG ABO+Rh group AP NRG Blood group antibody screen NEGATIVE NR G Manual absolute plasma cell count - 07/25 10:45 Blood monocytes/100 leukocytes 8 % NRG Manual blood segmented neutrophils/100 leukocytes 69 % NRG Manual blood lymphocytes/100 leukocytes 17 % NRG Manual eosinophils/100 leukocytes in nose 1 % NRG Blood lymphocytes variant/100 leukocytes 5 % NRG Blood erythrocyte morphology finding identification NORMAL NR Complete blood count (CBC) with automate d [...] i.cardiac measurement (mass/v olume) < ng/mL <0.028 Comprehensive metabolic panel - 11/16/19 02:18 Serum or plasma sodium measurement (moles/volume) 138 mmol/L 135-145 Serum or plasma potassium measurement (moles/volume) 4.7 mmol/L 3.6-5.0 Serum or plasma chloride measurement (moles/volume) 102 mmol/L 98-107 Carbon dioxide 25 mmol/L 21-32 Serum or plasma anion gap determination (moles/volume) 11 mmol/L 5-14 Serum or plasma urea nitrogen measurement (mass/volume ) 19 mg/dL 7-18 Serum or plasma creatinine measurement (mass/volume) 1.21 mg/dL 0.60-1.30 Serum or plasma urea nitrogen/creatinine mass ratio 16 NRG Serum or plasma creatinine measurement w ith calculation of estimated glomerular filtration rate 59 NRG Serum or plasma glucose measurement (mass/volume) 110 mg/dL 70-105 Serum or plasma calcium measurement (mass/volume) 9.2 mg/dL 8.5-10.1 Serum or plasma total bilirubin measurement (mass/volu me) 0.3 mg/dL 0.1-1.0 Serum or plasma alkaline phosphatase jaret surement (enzymatic activity/volume) 73 U/L 40-136 Serum or plasma aspartate aminotransfera se measurement (enzymatic activity/volume) 17 U/L 5-34 Serum or plasma alanine aminotransferase measurement (enzymatic activity/volume) 16 U/L 0-55 Serum or plasma protein measurement (mass/volume) 7.7 g/dL 6.4-8.2 Serum or plasma albumin measurement (mass/volume) 4.1 g/dL 3.2-4.5 CALCIUM CORRECTED 9.1 mg/dL 8.5-10.1 Magnesium - 11/16/19 02:18 Magnesium 2.3 mg/dL 1.6-2.4 Myoglobin, serum - 11/16/19 02:18 Myoglobin, serum 43.3 ng/mL 10.0-92.0 Serum or plasma troponin i.cardiac measu rement (mass/volume) - 11/16/19 02:18 Serum or plasma troponin i.cardiac measurement (mass/v olume) < ng/mL <0.028 PT panel in platelet poor plasma by coag ulation assay - 11/16/19 02:18 Prothrombin time (PT) in platelet poor plasma by coagu lation assay 12.1 s 12.2-14.7 INR in platelet poor plasma or blood by coagulation as say 0.9 0.8-1.4 Activated partial thromboplastin time (a PTT) in platelet poor plasma bycoagulation assay - 11/16/19 02:18 Activated partial thromboplastin time (a PTT) in platelet poor plasma bycoagulation assay 32 s 24-35 Complete blood count (CBC) with automate d white blood cell (WBC) differential - 11/16/19 02:18 Blood leukocytes automated count (number/volume) 11.5 10*3/uL 4.3-11.0 Blood erythrocytes automated count (number/volume) 4.78 10*6/uL 4.35-5.85 Venous blood hemoglobin measurement (mass/volume) 14.9 g/dL 13.3-17.7 Blood hematocrit (volume fraction) 45 % 40-54 Automated erythrocyte mean corpuscular volume 93 [ foz_us] 80-99 Automated erythrocyte mean corpuscular h emoglobin (mass per erythrocyte) 31 pg 25-34 Automated erythrocyte mean corpuscular h emoglobin concentration measurement (mass/volume) 33 g/dL 32-36 Automated erythrocyte distribution width ratio 14. 3 % 10.0- 14.5 Automated blood platelet count (count/volume) 363 10*3/uL 130-400 Automated blood platelet mean volume measurement 10.2 [foz_us] 7.4-10.4 Automated blood neutrophils/100 leukocytes 50 % 42-75 Automated blood lymphocytes/100 leukocytes 37 % 12-44 Blood monocytes/100 leukocytes 11 % 0-12 Automated blood eosinophils/100 leukocytes 1 % 0-10 Automated blood basophils/100 leukocytes 0 % 0-10 Blood neutrophils automated count (number/volume) 5.8 10*3 1.8-7.8 Blood lymphocytes automated count (number/volume) 4.3 10*3 1.0-4.0 Blood monocytes automated count (number/volume) 1. 3 10*3 0.0-1.0 Automated eosinophil count 0.1 10*3/uL 0 .0-0.3 Automated blood basophil count (count/volume) 0.0 10*3/uL 0.0-0.1 Lipase - 11/16/19 02:18 Lipase 54 U/L 8-78 Myoglobin, serum - 11/16/19 02:18 Myoglobin, serum 43.3 ng/mL 10.0-92.0 Lipase - 11/16/19 02:18 Lipase 54 U/L 8-78 Serum or plasma lithium measurement (mol es/volume) - 11/16/19 02:18 BNP PT 21.1 pg/mL <100.0 Complete urinalysis with reflex to cultu re - 11/16/19 02:40 Urine color determination YELLOW NRG Urine clarity determination SL CLOUDY N RG Urine pH measurement by test strip 5.5 5-9 Specific gravity of urine by test strip >= 1.016-1.022 Urine protein assay by test strip, semi-quantitative NEGATIVE NEGATIVE Urine glucose detection by automated test strip NE GATIVE NEGATIVE Erythrocytes detection in urine sediment by light micr oscopy NEGATIVE NEGATIVE Urine ketones detection by automated test strip NE GATIVE NEGATIVE Urine nitrite detection by test strip NEGATIVE NEGATIVE Urine total bilirubin detection by test strip NEGA TIVE NEGATIVE Urine urobilinogen measurement by automated test strip (mass/volume) 0.2 mg/dL < = 1.0 Urine leukocyte esterase detection by dipstick NEG ATIVE NEGATIVE Automated urine sediment erythrocyte cou nt by microscopy (number/high power field) NONE NRG Automated urine sediment leukocyte count by microscopy (number/high power field) NONE NRG Bacteria detection in urine sediment by light microsco py NEGATIVE NRG Squamous epithelial cells detection in u rine sediment by light microscopy RARE NRG Crystals detection in urine sediment by light microsco py NONE NRG Casts detection in urine sediment by light microscopy PRESENT NRG Mucus detection in urine sediment by light microscopy NEGATIVE NRG Complete urinalysis with reflex to culture NO NRG Hyaline casts detection in urine sediment by light lake roscopy RARE NRG Arterial blood gas measurement - 0 02:55 Blood pCO2 45 mm[Hg] 35-45 Blood pO2 102 mm[Hg] 79-93 Arterial blood bicarbonate measurement (moles/volume) 26 mmol/L 23-27 Arterial blood base excess by calculation 1.0 mmol /L -2.5-2.5 Arterial blood oxygen saturation measurement 98 % 94-100 * Inhaled oxygen flow rate RA NRG Arterial blood pH measurement with patient temperature correction 7.37 7.37-7.43 Arterial blood carbon dioxide, total measurement (mole s/volume) 27.1 mmol/L 21.0-31.0 Body site LEFT RADIAL NRG Assessment of wrist artery patency prior to arterial p uncture POSITIVE NRG Setting of ventilation mode NO NR G Measurement of body temperature 36.8 NRG Encounters ACCT No. Visit Date/Time Discharge Status Pt. Type Provider Facility Loc./Unit Complaint [id number] 11/16/2019 02:16:00 020 04:25:00 DIS Outpatient JUANITA HIGGINBOTHAM, LAISHA Galvin [facility] ER AMS,BACK PAIN [id number] 08/17/2019 14:31:00 020 18:38:00 DIS Emergency LAISHA GRANT MD [facility] ER DIZZINESS;WEAKNESS [id number] 06/06/2019 08:20:00 019 10:30:00 DIS Inpatient STERLING HIGGINBOTHAM FACC, NEY PETERS CCD S [facility] BLOCKAGE
--- NOTE | 2019-12-03 16:59 | ED Chest Pain ---
General Chief Complaint: Chest Pain Stated Complaint: CP Nursing Triage Note: Assisted pt via ED w/c from POV with c/o chest discomfort et nausea. 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 Daughter reports pt has been experiencing "delirium" for approx x3wks. Pt denies chest discomfort at this time. Pt responds appropriately to simple commands. Pt alert to person, place, et situation. Nursing Sepsis Screen: No Definite Risk Source: patient, family, old records Exam Limitations: no limitations History of Present Illness Date Seen by Provider: December 03, 2019 Time Seen by Provider: 12:25 Initial Comments This 69-year-old gentleman presents to the emergency room with chest pain and left arm numbness. This was noted about 30 minutes prior to arrival. He presents with his daughter who is his caregiver. He denies having pain on ar rival. He does have dementia and recently underwent some medication changes. He also has a history of coronary artery disease and had a WA last year. His arc air operator is Dr. Trinh and his primary care provider is Dr. Ngo. He also complains of chronic lower back pain. Allergies and Home Medications Allergies Coded Allergies: No Known Drug Allergies (Unverified , 06/06/19) Home Medications Alprazolam 0.5 Mg Tablet, 0.5 MG PO Q6H PRN for ANXIETY, (Reported) Amlodipine Besylate 5 Mg Tablet, 5 MG PO DAILY Prescribed by: LAISHA GRANT on 08/17/191741 Aspirin 81 Mg Tab.chew, 81 MG PO DAILY Prescribed by: MAXIMO CORRAL on 06/08/19 1002 Atorvastatin Calcium 80 Mg Tablet, 80 MG PO DAILY, (Reported) Clopidogrel Bisulfate 75 Mg Tablet, 75 MG PO DAILY Prescribed by: MAXIMO CORRAL on 06/08/19 1002 Donepezil HCl 5 Mg Tablet, 5 MG PO DAILY, (Reported) Fluoxetine HCl 60 Mg Tablet, 30 MG PO DAILY, (Reported) Irbesartan 300 Mg Tablet, 300 MG PO DAILY, (Reported) Memantine HCl 5 Mg Tablet, 5 MG PO DAILY, (Reported) Metoprolol Succinate 25 Mg Tab.er.24h, 25 MG PO DAILY Prescribed by: LAISHA GRANT on 08/17/191741 Patient Home Medication List Home Medication List Reviewed: Yes Review of Systems Review of Systems Constitutional: no symptoms reported EENTM: No Symptoms Reported Respiratory: No Symptoms Reported Cardiovascular: See HPI Gastrointestinal: No Symptoms Reported Genitourinary: No Symptoms Reported Musculoskeletal: see HPI Skin: no symptoms reported Psychiatric/Neurological: See HPI Endocrine: No Symptoms Reported Hematologic/Lymphatic: No Symptoms Reported Past Mdeysaf-Tfpayw-Edgxna Hx Past Med/Social Hx: Reviewed Nursing Past Med/Soc Hx Patient Social History Alcohol Use: Denies Use Recreational Drug Use: No Smoking Status: Never a Smoker 2nd Hand Smoke Exposure: Yes Recent Foreign Travel: No Contact w/Someone Who Travel: No Recent Infectious Disease Expo: No Recent Hopitalizations: No Immunizations Up To Date Tetanus Booster (TDap): Unknown Date of Influenza Vaccine: Jun 08, 2019 Seasonal Allergies Seasonal Allergies: No Past Medical History Surgeries: Yes Coronary Stent Respiratory: No Cardiac: Yes (SVT) Coronary Artery Disease, Heart Attack, High Cholesterol, Hypertension, Irregular Heartbeat Neurological: Yes Dementia Genitourinary: No Gastrointestinal: No Musculoskeletal: Yes Arthritis Endocrine: No HEENT: Yes Cataract Cancer: No Psychosocial: Yes Anxiety, Depression Integumentary: No Blood Disorders: No Physical Exam Vital Signs Vital Signs - First Documented Capillary Refill : Less Than 3 Seconds Height, Weight, BMI Height: '" Weight: lbs. oz. 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 Norm as Tested Skin: Normal Color, Warm/Dry Progress/Results/Core Measures Results/Orders Lab Results Laboratory Tests Test 12/03/19 12:21 12/03/19 16:25 Range/Units White Blood Count 8.9 4.3-11.0 10^3/uL Red Blood Count 4.88 4.35-5.85 10^6/uL Hemoglobin 15.2 13.3-17.7 G/DL Hematocrit 45 40-54 % Mean Corpuscular Volume 93 80-99 FL Mean Corpuscular Hemoglobin 31 25-34 PG Mean Corpuscular Hemoglobin Concent 34 32-36 G/DL Red Cell Distribution Width 13.9 10.0-14.5 % Platelet Count 306 130-400 10^3/uL Mean Platelet Volume 10.3 7.4-10.4 FL Neutrophils (%) (Auto) 52 42-75 % Lymphocytes (%) (Auto) 35 12-44 % Monocytes (%) (Auto) 12 0-12 % Eosinophils (%) (Auto) 1 0-10 % Basophils (%) (Auto) 0 0-10 % Neutrophils # (Auto) 4.6 1.8-7.8 X 10^3 Lymphocytes # (Auto) 3.1 1.0-4.0 X 10^3 Monocytes # (Auto) 1.1 H 0.0-1.0 X 10^3 Eosinophils # (Auto) 0.1 0.0-0.3 10^3/uL Basophils # (Auto) 0.0 0.0-0.1 10^3/uL Prothrombin Time 12.2 12.2-14.7 SEC INR Comment 0.9 0.8-1.4 Activated Partial Thromboplast Time 31 24-35 SEC Sodium Level 136 135-145 MMOL/L Potassium Level 4.4 3.6-5.0 MMOL/L Chloride Level 102 98-107 MMOL/L Carbon Dioxide Level 25 21-32 MMOL/L Anion Gap 9 5-14 MMOL/L Blood Urea Nitrogen 14 7-18 MG/DL Creatinine 1.11 0.60-1.30 MG/DL Estimat Glomerular Filtration Rate > 60 BUN/Creatinine Ratio 13 Glucose Level 138 H 70-105 MG/DL Calcium Level 9.2 8.5-10.1 MG/DL Corrected Calcium 9.0 8.5-10.1 MG/DL Magnesium Level 2.2 1.6-2.4 MG/DL Total Bilirubin 0.3 0.1-1.0 MG/DL Aspartate Amino Transf (AST/SGOT) 16 5-34 U/L Alanine Aminotransferase (ALT/SGPT) 18 0-55 U/L Alkaline Phosphatase 58 40-136 U/L Myoglobin 38.0 10.0-92.0 NG/ML Troponin I < 0.028 < 0.028 <0.028 NG/ML Total Protein 7.4 6.4-8.2 GM/DL Albumin 4.2 3.2-4.5 GM/DL My Orders Orders - ARNAUD SIMMONS MD Cbc With Automated Diff (12/03/19 12:39) Magnesium (12/03/19 12:39) Chest 1 View, Ap/Pa Only (12/03/19 12:39) Ekg Tracing (12/03/19 12:39) Comprehensive Metabolic Panel (12/03/19 12:39) Myoglobin Serum (12/03/19 12:39) Protime With Inr (12/03/19 12:39) Partial Thromboplastin Time (12/03/19 12:39) O2 (12/03/19 12:39) Monitor-Rhythm Ecg Trace Only (12/03/19 12:39) Ed Iv/Invasive Line Start (12/03/19 12:39) Troponin I (12/03/19 12:39) Aspirin Chewable Tablet (Baby Aspirin Ch (12/03/19 12:45) Troponin I (12/03/19 16:00) Medications Given in ED Current Medications Medications Dose Ordered Sig/Beckie Route Start Time Stop Time Status Last Admin Dose Admin Aspirin 243 mg ONCE ONCE PO 12/03/19 12:45 12/03/19 12:46 DC 12/03/19 12:49 243 MG Vital Signs/I&O 12/03/19 12/03/19 12/03/19 12:22 12:22 17:28 Temp 36.3 36.3 Pulse 65 65 Resp 18 18 B/P (MAP) 179/100 (126) 150/96 (126) Pulse Ox 97 97 O2 Delivery Room Air Room Air Room Air Blood Pressure Mean: 126 Progress Progress Note : Progress Note Cardiac workup including a 4 hour troponin was unremarkable. Patient had no further chest pain. He was alert, active, and ready for discharge. Initial ECG Impression Date: December 03, 2019 Initial ECG Impression Time: 12:23 Initial ECG Rate: 64 Initial ECG Rhythm: Normal Sinus Initial ECG Intervals: Normal Initial ECG Impression: Normal Comment Normal sinus rhythm with no ST elevation or depression. Nonspecific intraventricular conduction delay by automated read. No axis deviation. Diagnostic Imaging Diagonstic Imaging: Xray Plain Films/CT/US/NM/MRI: chest Comments NAME: EDITH REYNOSO [facility] REC#: [id number] PT STATUS: REG ER : 1950 PHYSICIAN: ARNAUD SIMMONS MD ADMIT DATE: 12/03/19/ER Signed Date of Exam:12/03/19 CHEST 1 VIEW, AP/PA ONLY INDICATION: Chest discomfort and nausea. COMPARISON: Comparison is made to study of 11/16/2019. FINDINGS: Heart size is at the upper limits of normal. There may be mild left basilar atelectasis. There is no pneumothorax or consolidation. No significant pleural fluid is seen. IMPRESSION: Probable mild left basilar atelectasis and/or scarring with otherwise unremarkable chest. Dictated by: Dictated on workstation # [id number] Dict: 12/03/19 1314 Trans: 12/03/19 1638 [id number] [id number] Interpreted by: EDITH AUSTIN MD Electronically signed by: EDITH AUSTIN MD 12/03/19 1638 Departure Impression Primary Impression: Chest pain Qualified Codes: R07.9 - Chest pain, unspecified Disposition: 01 HOME, SELF-CARE Condition: Improved Departure-Patient Inst. Decision time for Depature: 16:59 Referrals: KARISSA NGO MD (PCP/Family) Primary Care Physician Patient Instructions: Chest Pain Add. Discharge Instructions: Follow-up with Dr. Trinh as soon as possible. Continue your previously prescribed medications. Return to care if you have worsening symptoms. All discharge instructions reviewed with patient and/or family. Voiced understanding. Copy Copies To 1: NEY TRINH MD FACP FAC CCDS Copies To 2: KARISSA NGO MD, JOSHUA T MD December 03, 2019 16:59
[2019-12-03 17:28] VITALS: BP 150/96
== END 2019-12-03 17:32 | disposition home or self-care (01) ==
LOC: EDUNIT# 12:22 → ER 12:23
DX: R07.89 Other chest pain (principal); I10 Essential (primary) hypertension; I25.2 Old myocardial infarction; I25.10 Atherosclerotic heart disease of native coronary artery without angina pectoris; E78.00 Pure hypercholesterolemia, unspecified; F03.90 Unspecified dementia, unspecified severity, without behavioral disturbance, psychotic disturbance, mood disturbance, and anxiety; F41.9 Anxiety disorder, unspecified; F32.9 Major depressive disorder, single episode, unspecified; R07.9 Chest pain, unspecified; Z95.5 Presence of coronary angioplasty implant and graft; Z79.82 Long term (current) use of aspirin; Z79.02 Long term (current) use of antithrombotics/antiplatelets; Z77.22 Contact with and (suspected) exposure to environmental tobacco smoke (acute) (chronic)
CPT/HCPCS: 36415; 71045; 80053; 83735; 83874; 84484; 85025; 85610; 85730; 93005; 93041

== ENCOUNTER 2019-12-06 12:22 | Emergency (ER) | payer MEDICARE ==
[~2019-12-06] VITALS: Ht 167 cm; Wt 124.4 kg
--- NOTE | 2019-12-06 12:39 | ED General ---
General Stated Complaint: AMS;DELIRIUM Source of Information: Patient, Family Exam Limitations: No Limitations History of Present Illness Date Seen by Provider: Dec 06, 2019 Time Seen by Provider: 12:37 Initial Comments To ER by daughter who is RN here with reports of hallucinations, delirium. This has been getting progressively worse over the past few months. She is concerned that it is to the point that he could become violent with his who also lives at home and has dementia. He has alternating periods of lucidity and delirium. States that the hallucinations and confusion seems to get worse in the afternoons. Severity: Moderate Associated Systoms: Denies Symptoms Allergies and Home Medications Allergies Coded Allergies: No Known Drug Allergies (Unverified , 06/06/19) Home Medications Alprazolam 0.5 Mg Tablet, 0.5 MG PO Q6H PRN for ANXIETY, (Reported) Amlodipine Besylate 5 Mg Tablet, 5 MG PO DAILY Prescribed by: LAISHA GRANT on 08/17/191741 Aspirin 81 Mg Tab.chew, 81 MG PO DAILY Prescribed by: MAXIMO CORRAL on 06/08/19 1002 Atorvastatin Calcium 80 Mg Tablet, 80 MG PO DAILY, (Reported) Clopidogrel Bisulfate 75 Mg Tablet, 75 MG PO DAILY Prescribed by: MAXIMO CORRAL on 06/08/19 1002 Donepezil HCl 5 Mg Tablet, 5 MG PO DAILY, (Reported) Fluoxetine HCl 60 Mg Tablet, 30 MG PO DAILY, (Reported) Irbesartan 300 Mg Tablet, 300 MG PO DAILY, (Reported) Memantine HCl 5 Mg Tablet, 5 MG PO DAILY, (Reported) Metoprolol Succinate 25 Mg Tab.er.24h, 25 MG PO DAILY Prescribed by: LAISHA GRANT on 08/17/191741 Patient Home Medication List Home Medication List Reviewed: Yes Review of Systems Review of Systems Constitutional: see HPI EENTM: see HPI Respiratory: no symptoms reported Cardiovascular: no symptoms reported Genitourinary: no symptoms reported Musculoskeletal: no symptoms reported Skin: no symptoms reported Psychiatric/Neurological: No Symptoms Reported Hematologic/Lymphatic: No Symptoms Reported Past Vcyczau-Jxqhxw-Xhvdhg Hx Patient Social History 2nd Hand Smoke Exposure: Yes Recent Foreign Travel: No Contact w/Someone Who Travel: No Recent Hopitalizations: No Immunizations Up To Date Tetanus Booster (TDap): Unknown Date of Influenza Vaccine: Jun 08, 2019 Seasonal Allergies Seasonal Allergies: No Past Medical History Surgeries: Yes Coronary Stent Respiratory: No Cardiac: Yes (SVT) Coronary Artery Disease, Heart Attack, High Cholesterol, Hypertension, Irregular Heartbeat Neurological: Yes Dementia Genitourinary: No Gastrointestinal: No Musculoskeletal: Yes Arthritis Endocrine: No HEENT: Yes Cataract Cancer: No Psychosocial: Yes Anxiety, Depression Integumentary: No Blood Disorders: No Physical Exam Vital Signs Vital Signs - First Documented 12/06/19 12/06/19 12:25 14:48 Temp 37.1 Pulse 73 Resp 18 B/P (MAP) 148/105 (119) Pulse Ox 95 O2 Delivery Room Air Capillary Refill : Height, Weight, BMI Height: '" Weight: lbs. oz. kg; 44.00 BMI Method: General Appearance: No Apparent Distress, WD/WN, Obese (at this time he is alert and oriented no distress, knows where he is out and why he is here.) Eyes: Bilateral Eye Normal Inspection, Bilateral Eye PERRL, Bilateral Eye EOMI Respiratory: Lungs Clear, Normal Breath Sounds, No Accessory Muscle Use, No Respiratory Distress Cardiovascular: Regular Rate, Rhythm, Normal Peripheral Pulses Gastrointestinal: Normal Bowel Sounds, Non Tender, Soft Extremity: Normal Capillary Refill, Normal Inspection Neurologic/Psychiatric: Alert, Oriented x3 Skin: Normal Color, Warm/Dry Progress/Results/Core Measures Suspected Sepsis SIRS Temperature: Pulse: Respiratory Rate: Laboratory Tests 12/06/19 13:01: White Blood Count 9.7 Blood Pressure / Mean: Laboratory Tests 12/06/19 13:01: Creatinine 1.15, Platelet Count 280, Total Bilirubin 0.4 Results/Orders Lab Results Laboratory Tests Test 12/06/19 13:01 Range/Units White Blood Count 9.7 4.3-11.0 10^3/uL Red Blood Count 4.69 4.35-5.85 10^6/uL Hemoglobin 14.8 13.3-17.7 G/DL Hematocrit 44 40-54 % Mean Corpuscular Volume 93 80-99 FL Mean Corpuscular Hemoglobin 32 25-34 PG Mean Corpuscular Hemoglobin Concent 34 32-36 G/DL Red Cell Distribution Width 13.8 10.0-14.5 % Platelet Count 280 130-400 10^3/uL Mean Platelet Volume 10.4 7.4-10.4 FL Neutrophils (%) (Auto) 59 42-75 % Lymphocytes (%) (Auto) 29 12-44 % Monocytes (%) (Auto) 11 0-12 % Eosinophils (%) (Auto) 1 0-10 % Basophils (%) (Auto) 0 0-10 % Neutrophils # (Auto) 5.7 1.8-7.8 X 10^3 Lymphocytes # (Auto) 2.8 1.0-4.0 X 10^3 Monocytes # (Auto) 1.1 H 0.0-1.0 X 10^3 Eosinophils # (Auto) 0.1 0.0-0.3 10^3/uL Basophils # (Auto) 0.0 0.0-0.1 10^3/uL Sodium Level 139 135-145 MMOL/L Potassium Level 4.2 3.6-5.0 MMOL/L Chloride Level 104 98-107 MMOL/L Carbon Dioxide Level 25 21-32 MMOL/L Anion Gap 10 5-14 MMOL/L Blood Urea Nitrogen 20 H 7-18 MG/DL Creatinine 1.15 0.60-1.30 MG/DL Estimat Glomerular Filtration Rate > 60 BUN/Creatinine Ratio 17 Glucose Level 127 H 70-105 MG/DL Calcium Level 9.1 8.5-10.1 MG/DL Corrected Calcium 9.0 8.5-10.1 MG/DL Total Bilirubin 0.4 0.1-1.0 MG/DL Aspartate Amino Transf (AST/SGOT) 15 5-34 U/L Alanine Aminotransferase (ALT/SGPT) 16 0-55 U/L Alkaline Phosphatase 58 40-136 U/L Total Protein 7.2 6.4-8.2 GM/DL Albumin 4.1 3.2-4.5 GM/DL My Orders Orders - ROLLY KEBEDE APRN Cbc With Automated Diff (12/06/19 12:34) Comprehensive Metabolic Panel (12/06/19 12:34) Ekg Tracing (12/06/19 12:34) Vital Signs/I&O 12/06/19 12/06/19 12:25 14:48 Temp 37.1 Pulse 73 85 Resp 18 18 B/P (MAP) 148/105 (119) 158/105 Pulse Ox 95 O2 Delivery Room Air Capillary Refill : Departure Communication (Admissions) Family Conversation Meets criteria for admission at [facility], we will transfer him by private vehicle there Impression Primary Impression: Dementia with behavioral disturbance Qualified Codes: F03.91 - Unspecified dementia with behavioral disturbance Disposition: 02 XFER SHT-TRM HOSP Condition: Stable Departure-Patient Inst. Referrals: KARISSA NGO MD (PCP/Family) Primary Care Physician ROLLY KEBEDE APRN Dec 06, 2019 12:39
--- NOTE | 2019-12-06 13:04 | NUR ---
BLOOD, DRAWN BY LAB
--- NOTE | 2019-12-06 13:05 | NUR ---
LAB INFORMED STAFF DELPHINE HE WAS TALKING TO SOMEONE THAT HE THOUGHT WAS IN THE ROOM
[2019-12-06 13:10] LABS: BASOPHILS % (AUTO) 0 % (0-10); EOSINOPHILS # (AUTO) 0.1 10^3/uL (0.0-0.3); EOSINOPHILS % (AUTO) 1 % (0-10); HEMATOCRIT 44 % (40-54); HEMOGLOBIN 14.8 G/DL (13.3-17.7); LYMPHOCYTES # (AUTO) 2.8 X 10^3 (1.0-4.0); LYMPHOCYTES % (AUTO) 29 % (12-44); MEAN CORPUSCULAR HEMOGLOBIN 32 PG (25-34); MEAN CORPUSCULAR HGB CONC 34 G/DL (32-36); MEAN CORPUSCULAR VOLUME 93 FL (80-99); MEAN PLATELET VOLUME 10.4 FL (7.4-10.4); MONOCYTES # (AUTO) 1.1 X 10^3 (0.0-1.0); MONOCYTES % (AUTO) 11 % (0-12); NEUTROPHILS # (AUTO) 5.7 X 10^3 (1.8-7.8); NEUTROPHILS % (AUTO) 59 % (42-75); PLATELET COUNT 280 10^3/uL (130-400); RED CELL DISTRIBUTION WIDTH 13.8 % (10.0-14.5); WHITE BLOOD COUNT 9.7 10^3/uL (4.3-11.0)
[2019-12-06 13:21] LABS: ALBUMIN 4.1 GM/DL (3.2-4.5); CHLORIDE 104 MMOL/L (98-107); POTASSIUM 4.2 MMOL/L (3.6-5.0); SODIUM 139 MMOL/L (135-145)
[2019-12-06 13:22] LABS: CALCIUM 9.1 MG/DL (8.5-10.1)
[2019-12-06 13:23] LABS: GLUCOSE 127 MG/DL (70-105); TOTAL PROTEIN 7.2 GM/DL (6.4-8.2)
[2019-12-06 13:24] LABS: CARBON DIOXIDE 25 MMOL/L (21-32)
[2019-12-06 13:25] LABS: BILIRUBIN,TOTAL 0.4 MG/DL (0.1-1.0)
[2019-12-06 13:26] LABS: ALKALINE PHOSPHATASE 58 U/L (40-136)
[2019-12-06 13:27] LABS: CREATININE SERUM 1.15 MG/DL (0.60-1.30); GFR ESTIMATED > 60
[2019-12-06 13:28] LABS: BUN/CREATININE RATIO 17
--- NOTE | 2019-12-06 13:29 | NUR ---
TO ROOM PATIENT THOUGHT HE HAD SOMETING IN HIS HAND.
[2019-12-06 13:30] LABS: ALANINE AMINOTRANSFERASE 16 U/L (0-55)
--- OUTSIDE RECORDS SUMMARY | 2019-12-06 14:15 | XMS REPORT | Continuity of Care Document ---
Author Organization Unknown Address Unknown Phone Unavailable Allergies Active Description Code Type Severity Reaction Onset Reported/Identified Relationship to Patient Clinical Status Yes No Known Drug Allergies [id number] Drug Allergy Unknown N/A 06/06/2019 Medications There [...] CCDS Ot I25.10 ATHSCL HEART DISEASE OF [place] CORONARY 06/08/2019 STERLING HIGGINBOTHAM FACC, NEY FACP [...] CCDS Ot I25.10 ATHSCL HEART DISEASE OF [place] CORONARY 06/08/2019 STERLING HIGGINBOTHAM FACC, ALI FACP [...] CCDS Ot I25.10 ATHSCL HEART DISEASE OF [place] CORONARY 06/08/2019 STERLING HIGGINBOTHAM FACC, NEY FACP [...] I21.4 NON-ST ELEVATION (NSTEMI) MYOCARDIAL INF 06/08/2019 STERILNG HIGGINBOTHAM FACC, NEY FACP CCDS Ot I25.10 ATHSCL HEART DISEASE OF [place] CORONARY 06/08/2019 NEY KATZ MD, FACC FACP CCDS Ot I25.110 ATHSCL HEART DISEASE OF [place] COR ART W 06/08/2019 STERLING HIGGINBOTHAM FACC, [...] Ot R52 PAIN, UNSPECIFIED 06/08/2019 STERLING HIGGINBOTHAM [facility], ALI FACP CCDS Ot R73.01 IMPAIRED FASTING GLUCOSE 06/08/2019 STERLING SHAIKH, ALI FACP CCDS Ot Z68.42 BODY MASS INDEX (BMI) 45.0-49.9, ADULT 06/10/2019 STERLING HIGGINBOTHAM [facility], ALI FACP CCDS Ot E66.01 MORBID (SEVERE) OBESITY DUE TO EXCESS CA 06/10/2019 STERLING SHAIKH, ALI FACP CCDS Ot E78.00 PURE HYPERCHOLESTEROLEMIA, UNSPECIFIED 06/10/2019 STERLING HIGGINBOTHAM [facility], ALI FACP CCDS Ot F03.90 UNSPECIFIED DEMENTIA WITHOUT BEHAVIORAL 06/10/2019 STERLING HIGGINBOTHAM [facility], ALI FACP CCDS Ot F32.9 MAJOR DEPRESSIVE DISORDER, SINGLE EPISOD 06/10/2019 STERLING SHAIKH, ALI FACP CCDS Ot G89.29 OTHER CHRONIC PAIN 06/10/2019 STERLING HIGGINBOTHAM [facility], ALI FACP CCDS Ot I10 ESSENTIAL (PRIMARY) HYPERTENSION 06/10/2019 STERLING HIGGINBOTHAM [facility], ALI FACP CCDS Ot I21.4 NON-ST ELEVATION (NSTEMI) MYOCARDIAL INF 06/10/2019 STERLING HIGGINBOTHAM [facility], ALI FACP CCDS Ot I25.10 ATHSCL HEART DISEASE OF [place] CORONARY 06/10/2019 STERLING HIGGINBOTHAM [facility], ALI FACP CCDS Ot I47.1 SUPRAVENTRICULAR TACHYCARDIA 06/10/2019 STERLING HIGGINBOTHAM [facility], ALI FACP CCDS Ot R52 PAIN, UNSPECIFIED 06/10/2019 STERLING HIGGINBOTHAM [facility], ALI FACP CCDS Ot R73.01 IMPAIRED FASTING GLUCOSE 06/10/2019 STERLING HIGGINBOTHAM [facility], ALI FACP CCDS Ot Z68.42 BODY MASS INDEX (BMI) 45.0-49.9, ADULT 08/17/2019 LAISHA GRANT MD Ot E66. 9 OBESITY, UNSPECIFIED 08/17/2019 LAISHA GRANT MD Ot E78. 00 PURE HYPERCHOLESTEROLEMIA, UNSPECIFIED 08/17/2019 LAISHA GRANT MD Ot F32. 9 MAJOR DEPRESSIVE DISORDER, SINGLE EPISOD 08/17/2019 LAISHA GRANT MD Ot F41. 9 ANXIETY DISORDER, UNSPECIFIED 08/17/2019 LAISHA GARNT MD Ot I10 ESSENTIAL (PRIMARY) HYPERTENSION 08/17/2019 [...] Z79. 82 PRISON (CURRENT) USE OF ASPIRIN 11/18/2019 LAISHA GRANT MD Ot E78. 00 PURE HYPERCHOLESTEROLEMIA, UNSPECIFIED 11/18/2019 LAISHA GRANT MD Ot F03. 90 UNSPECIFIED DEMENTIA WITHOUT BEHAVIORAL 11/18/2019 LAISHA GRATN MD Ot F05 DELIRIUM DUE TO KNOWN PHYSIOLOGICAL COND 11/18/2019 LAISHA GRANT MD Ot F32. 9 MAJOR DEPRESSIVE DISORDER, SINGLE EPISOD 11/18/2019 LAISHA GRANT MD Ot F41. 9 ANXIETY DISORDER, UNSPECIFIED 11/18/2019 LAISHA GRANT MD Ot R41. 0 DISORIENTATION, UNSPECIFIED 11/18/2019 LAISHA GRANT MD Ot Z77. 22 CNTCT W AND EXPSR TO ENVIRON TOBACCO SMO 11/18/2019 LAISHA GRANT MD Ot Z79. 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 82 COMMERCIAL DECORATOR (CURRENT) USE OF ASPIRIN 11/18/2019 LAISHA GRANT [...] 11/18/2019 LAISHA GRANT MD Ot Z79. 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 82 COMMERCIAL DECORATOR (CURRENT) USE OF ASPIRIN 11/23/2019 LAISHA GRANT [...] 11/23/2019 LAISHA GRANT MD, Ot Z79. 02 COMMERCIAL DECORATOR (CURRENT) USE OF ANTITHROMBOTI 11/23/2019 LAISHA GRANT MD, Ot Z79. 82 PRISON (CURRENT) USE OF ASPIRIN Procedures Code Description Performed By Per formed On [id number] DI LATION OF 1 COR ART WITH DRUG-ELUT INT 06/06/2019 [id number] ME ASURE OF CARDIAC SAMPL PRESSURE, L H 06/06/2019 [id number] FL UOROSCOPY OF MULT COR ART USING L OSM 06/06/2019 [id number] FL UOROSCOPY OF LEFT HEART USING LOW [...] pa leatha - 06/06/19 10:45 WRISTBAND NUMBER [id number] NRG ABO+Rh group AP NRG Blood group [...] G Measurement of body temperature 36.8 NRG Complete blood count (CBC) with automate d white blood cell (WBC) differential - 12/03/19 12:21 Blood leukocytes automated count (number/volume) 8.9 10*3/uL 4.3-11.0 Blood erythrocytes automated count (number/volume) 4.88 10*6/uL 4.35-5.85 Venous blood hemoglobin measurement (mass/volume) 15.2 g/dL 13.3-17.7 Blood hematocrit (volume fraction) 45 % 40-54 Automated erythrocyte mean corpuscular volume 93 [ foz_us] 80-99 Automated erythrocyte mean corpuscular h emoglobin (mass per erythrocyte) 31 pg 25-34 Automated erythrocyte mean corpuscular h emoglobin concentration measurement (mass/volume) 34 g/dL 32-36 Automated erythrocyte distribution width ratio 13. 9 % 10.0- 14.5 Automated blood platelet count (count/volume) 306 10*3/uL 130-400 Automated blood platelet mean volume measurement 10.3 [foz_us] 7.4-10.4 Automated blood neutrophils/100 leukocytes 52 % 42-75 Automated blood lymphocytes/100 leukocytes 35 % 12-44 Blood monocytes/100 leukocytes 12 % 0-12 Automated blood eosinophils/100 leukocytes 1 % 0-10 Automated blood basophils/100 leukocytes 0 % 0-10 Blood neutrophils automated count (number/volume) 4.6 10*3 1.8-7.8 Blood lymphocytes automated count (number/volume) 3.1 10*3 1.0-4.0 Blood monocytes automated count (number/volume) 1. 1 10*3 0.0-1.0 Automated eosinophil count 0.1 10*3/uL 0 .0-0.3 Automated blood basophil count (count/volume) 0.0 10*3/uL 0.0-0.1 Comprehensive metabolic panel - 12/03/19 12:21 Serum or plasma sodium measurement (moles/volume) 136 mmol/L 135-145 Serum or plasma potassium measurement (moles/volume) 4.4 mmol/L 3.6-5.0 Serum or plasma chloride measurement (moles/volume) 102 mmol/L 98-107 Carbon dioxide 25 mmol/L 21-32 Serum or plasma anion gap determination (moles/volume) 9 mmol/L 5-14 Serum or plasma urea nitrogen measurement (mass/volume ) 14 mg/dL 7-18 Serum or plasma creatinine measurement (mass/volume) 1.11 mg/dL 0.60-1.30 Serum or plasma urea nitrogen/creatinine mass ratio 13 NRG Serum or plasma creatinine measurement w ith calculation of estimated glomerular filtration rate > NRG Serum or plasma glucose measurement (mass/volume) 138 mg/dL 70-105 Serum or plasma calcium measurement (mass/volume) 9.2 mg/dL 8.5-10.1 Serum or plasma total bilirubin measurement (mass/volu me) 0.3 mg/dL 0.1-1.0 Serum or plasma alkaline phosphatase jaret surement (enzymatic activity/volume) 58 U/L 40-136 Serum or plasma aspartate aminotransfera se measurement (enzymatic activity/volume) 16 U/L 5-34 Serum or plasma alanine aminotransferase measurement (enzymatic activity/volume) 18 U/L 0-55 Serum or plasma protein measurement (mass/volume) 7.4 g/dL 6.4-8.2 Serum or plasma albumin measurement (mass/volume) 4.2 g/dL 3.2-4.5 CALCIUM CORRECTED 9.0 mg/dL 8.5-10.1 Magnesium - 12/03/19 12:21 Magnesium 2.2 mg/dL 1.6-2.4 PT panel in platelet poor plasma by coag ulation assay - 12/03/19 12:21 Prothrombin time (PT) in platelet poor plasma by coagu lation assay 12.2 s 12.2-14.7 INR in platelet poor plasma or blood by coagulation as say 0.9 0.8-1.4 Activated partial thromboplastin time (a PTT) in platelet poor plasma bycoagulation assay - 12/03/19 12:21 Activated partial thromboplastin time (a PTT) in platelet poor plasma bycoagulation assay 31 s 24-35 Serum or plasma troponin i.cardiac measu rement (mass/volume) - 12/03/19 12:21 Serum or plasma troponin i.cardiac measurement (mass/v olume) < ng/mL <0.028 Myoglobin, serum - 12/03/19 12:21 Myoglobin, serum 38.0 ng/mL 10.0-92.0 Serum or plasma troponin i.cardiac measu rement (mass/volume) - 12/03/19 16:25 Serum or plasma troponin i.cardiac measurement (mass/v olume) < ng/mL <0.028 Encounters ACCT No. Visit Date/Time Discharge Status Pt. Type Provider Facility Loc./Unit Complaint [id number] 12/03/2019 12:23:00 17:32:00 DIS Emergency IRIS HIGGINBOTHAM, ARNAUD Miller [facility] CP [id number] 11/16/2019 02:16:00 04:25:00 DIS Outpatient LAISHA GRANT MD [facility] AMS,BACK PAIN [id number] 08/17/2019 14:31:00 18:38:00 DIS Emergency LAISHA GRANT MD [facility] ER DIZZINESS;WEAKNESS [id number] 06/06/2019 08:20:00 10:30:00 DIS Inpatient STERLING HIGGINBOTHAM FACC, NEY PETERS CCD S [facility] BLOCKAGE
[2019-12-06 14:48] VITALS: BP 158/105
== END 2019-12-06 15:02 | disposition home or self-care (01) ==
LOC: EDUNIT# 12:22 → ER 12:24
DX: F03.91 Unspecified dementia, unspecified severity, with behavioral disturbance (principal); I10 Essential (primary) hypertension; I25.10 Atherosclerotic heart disease of native coronary artery without angina pectoris; I25.2 Old myocardial infarction; E78.00 Pure hypercholesterolemia, unspecified; F41.9 Anxiety disorder, unspecified; F32.9 Major depressive disorder, single episode, unspecified; Z79.82 Long term (current) use of aspirin; Z79.02 Long term (current) use of antithrombotics/antiplatelets; Z77.22 Contact with and (suspected) exposure to environmental tobacco smoke (acute) (chronic); Z95.5 Presence of coronary angioplasty implant and graft
CPT/HCPCS: 36415; 80053; 85025; 93005